=== PATIENT | female | born 1950 | race Caucasian/White ===

== ENCOUNTER 2017-10-30 11:50 | Inpatient (IN) ==
[2017-10-30] MEDS ORDERED: SODIUM CHLORIDE 0.9% 500 ML IV STA (12:08)
[2017-10-30 12:28] LABS: Basophils % 0.2 % (0.0-0.8); Eosinophils # 0.1 10*3/uL (0.0-0.87); Eosinophils % 1.1 % (0.00-10.9); Hematocrit 29.6 VOL% (35.7-47.0); Hemoglobin 9.4 GM/DL (12.0-16.0); Immature Granulocytes % 0.7 %; Immature Granulocytes Absolute 0.09 #; Lymphocytes # 1.1 10*3/uL (1.4-4.0); Lymphocytes % 8.5 % (21.3-54.2); Mean Corpuscular HGB Conc 31.8 GM/DL (32-36); Mean Corpuscular Hemoglobin 28 PG (27-34); Mean Corpuscular Volume 86.8 FL (87-102); Monocytes # 1.1 10*3/uL (0.11-0.8); Monocytes % 8.6 % (1.7-12.7); Neutrophils % 80.9 % (38.7-73.9); Platelet Count 102 T/CUMM (130-400); Red Blood Count 3.41 MC/CUMM (3.8-5.5); Red Cell Distribution Width 17.9 % (9.3-17.3); White Blood Count 12.3 T/CUMM (4-12)
[2017-10-30 12:43] LABS: PT Patient Result 10.7 SECS
[2017-10-30 12:52] LABS: Ammonia 42 UMOL/L (11-32)
[2017-10-30 12:57] LABS: Alanine Aminotransferase 31 U/L (13-56); Albumin 3.4 G/DL (3.4-5.0); Alkaline Phosphatase 94 U/L (45-117); Aspartate Amino Transferase 22 U/L (0-37); Blood Urea Nitrogen 13 MG/DL (7-18); Calcium 9.1 MG/DL (8.5-10.1); Glucose 139 MG/DL (74-106); Osmolality,Calculated 282.3 MOS/KG (273-304); Potassium 4.4 MMOL/L (3.5-5.1); Sodium 141 MMOL/L (136-145); Total Protein 6.5 G/DL (6.4-8.3)
[2017-10-30 15:14] LABS: Apearance,Urine CLEAR (Clear); Bilirubin,Urine Negative (Negative); Blood, Urine Negative (Negative); Glucose,Urine (UA) 150 mg/dL (Negative); Ketones,Urine Negative (Negative); Mucus,Urine Occasional /LPF (Occasional); Nitrite,Urine Negative (Negative); Protein,Urine Negative; RBC,Urine 1 /HPF (0-4); Squamous Epithelial Cell,Urine Occasional /HPF (0-10); Urine Color Yellow (Yellow); Urine Specific Gravity 1.018 (1.001-1.035); WBC,Urine <1 /HPF (0-6)
[2017-10-30 15:17] LABS: Barbiturates Screen,Urine Negative (Negative); Benzodiazepines Screen,Urine Negative (Negative); Cannabinoid Screen,Urine Negative (Negative); Opiate Screen,Urine Negative (Negative); Phencyclidine Screen,Urine Negative (Negative)
[2017-10-30] MEDS: INSULIN REGULAR 100 UNIT/ML SUBCUT SCH ×2 (16:40→22:12)
[2017-10-30] MEDS ORDERED: DEXTROSE 50% 25 GM/50 ML VIAL IV PRN (16:48)
[2017-10-30] MEDS ORDERED: GLUCAGON 1 MG VIAL IM PRN (16:48)
[2017-10-30] MEDS ORDERED: PNEUMOCOCCAL VACCINE (13 VALENT) 0.5 ML SYRINGE IM ONE (18:06)
[2017-10-30] MEDS: SODIUM CHLORIDE 0.9% 1,000 ML IV SCH (18:30)
[2017-10-30] MEDS: ENOXAPARIN 40 MG/0.4 ML SYRINGE SUBCUT SCH (18:31)
[2017-10-30] MEDS: PROPRANOLOL 20 MG TABLET PO SCH (22:06)
[2017-10-30] MEDS: LACTULOSE 20 GM/30 ML UDCUP PO SCH (22:06)
[2017-10-30] MEDS: ACETAMINOPHEN 325 MG TABLET PO PRN (22:23)
[2017-10-31 05:57] LABS: Basophils % 0.4 % (0.0-0.8); Eosinophils # 0.1 10*3/uL (0.0-0.87); Hematocrit 26.4 VOL% (35.7-47.0); Hemoglobin 8.1 GM/DL (12.0-16.0); Immature Granulocytes % 0.3 %; Immature Granulocytes Absolute 0.02 #; Lymphocytes # 1.5 10*3/uL (1.4-4.0); Lymphocytes % 20.8 % (21.3-54.2); Mean Corpuscular HGB Conc 30.7 GM/DL (32-36); Mean Corpuscular Hemoglobin 27 PG (27-34); Mean Corpuscular Volume 87.7 FL (87-102); Monocytes # 0.8 10*3/uL (0.11-0.8); Neutrophils # 4.5 10*3/uL (1.4-7.4); Neutrophils % 64.5 % (38.7-73.9); Platelet Count 99 T/CUMM (130-400); Red Blood Count 3.01 MC/CUMM (3.8-5.5)
[2017-10-31 06:27] LABS: Calcium 7.9 MG/DL (8.5-10.1); Osmolality,Calculated 287.8 MOS/KG (273-304); Potassium 3.9 MMOL/L (3.5-5.1)
[2017-10-31] MEDS: LACTULOSE 20 GM/30 ML UDCUP PO SCH ×3 (06:30→21:50)
[2017-10-31] MEDS: SODIUM CHLORIDE 0.9% 1,000 ML IV SCH ×2 (06:40→21:51)
[2017-10-31] MEDS: INSULIN REGULAR 100 UNIT/ML SUBCUT SCH ×4 (08:09→21:48)
[2017-10-31] MEDS: PROPRANOLOL 20 MG TABLET PO SCH ×2 (10:23→21:47)
[2017-10-31 15:18] LABS: Folate 16.6 NG/ML (5.4-24.0)
[2017-10-31] MEDS ORDERED: SKIN HEALING OINT (AQUAPHOR) 50 GM TUBE TOP PRN (15:35)
[2017-10-31] MEDS: ENOXAPARIN 40 MG/0.4 ML SYRINGE SUBCUT SCH (16:46)
[2017-10-31] MEDS: CEFTAROLINE 600 MG in SODIUM CHLORIDE 0.9% 50 ML IV SCH (17:31)
[2017-10-31] MEDS: FERROUS SULFATE 325 MG TABLET PO SCH (21:47)
[2017-10-31] MEDS: INSULIN GLARGINE 100 UNIT/ML SUBCUT SCH (21:48)
[2017-10-31] MEDS: DONEPEZIL 5 MG TABLET PO SCH (21:48)
[2017-11-01] MEDS: ACETAMINOPHEN 325 MG TABLET PO PRN ×2 (00:26→15:27)
[2017-11-01] MEDS ORDERED: HALOPERIDOL 5 MG/ML AMP IV ONE (00:30)
[2017-11-01] MEDS: CEFTAROLINE 600 MG in SODIUM CHLORIDE 0.9% 50 ML IV SCH ×2 (04:44→16:31)
[2017-11-01] MEDS: LACTULOSE 20 GM/30 ML UDCUP PO SCH ×3 (06:48→21:31)
[2017-11-01] MEDS: INSULIN REGULAR 100 UNIT/ML SUBCUT SCH ×4 (09:22→21:31)
[2017-11-01] MEDS: INSULIN GLARGINE 100 UNIT/ML SUBCUT SCH ×2 (09:22→21:32)
[2017-11-01] MEDS: FUROSEMIDE 20 MG TABLET PO SCH (09:24)
[2017-11-01] MEDS: LISINOPRIL 20 MG TABLET PO SCH (09:24)
[2017-11-01] MEDS: PROPRANOLOL 20 MG TABLET PO SCH ×2 (09:24→21:31)
[2017-11-01] MEDS: FERROUS SULFATE 325 MG TABLET PO SCH ×2 (09:24→21:31)
[2017-11-01] MEDS: SODIUM CHLORIDE 0.9% 1,000 ML IV SCH ×3 (09:32→22:30)
[2017-11-01] MEDS: ENOXAPARIN 40 MG/0.4 ML SYRINGE SUBCUT SCH (16:30)
[2017-11-01] MEDS: DONEPEZIL 5 MG TABLET PO SCH (21:31)
[2017-11-02] MEDS ORDERED: HALOPERIDOL 5 MG/ML AMP IV ONE (01:00)
[2017-11-02] MEDS ORDERED: LACTULOSE 20 GM/30 ML UDCUP PO PRN (03:00)
[2017-11-02] MEDS: CEFTAROLINE 600 MG in SODIUM CHLORIDE 0.9% 50 ML IV SCH ×2 (05:34→16:40)
[2017-11-02] MEDS: INSULIN REGULAR 100 UNIT/ML SUBCUT SCH ×3 (09:43→16:39)
[2017-11-02] MEDS: PROPRANOLOL 20 MG TABLET PO SCH ×2 (10:05→21:14)
[2017-11-02] MEDS: FERROUS SULFATE 325 MG TABLET PO SCH ×2 (10:05→21:14)
[2017-11-02] MEDS: INSULIN GLARGINE 100 UNIT/ML SUBCUT SCH ×2 (10:06→22:23)
[2017-11-02] MEDS: LISINOPRIL 20 MG TABLET PO SCH (10:06)
[2017-11-02] MEDS: FUROSEMIDE 20 MG TABLET PO SCH (10:06)
[2017-11-02] MEDS: LACTULOSE 20 GM/30 ML UDCUP PO SCH ×4 (12:25→18:32)
[2017-11-02 14:12] LABS: Basophils % 0.7 % (0.0-0.8); Eosinophils # 0.2 10*3/uL (0.0-0.87); Hematocrit 27.7 VOL% (35.7-47.0); Immature Granulocytes % 0.5 %; Immature Granulocytes Absolute 0.02 #; Lymphocytes # 1.1 10*3/uL (1.4-4.0); Lymphocytes % 25.1 % (21.3-54.2); Mean Corpuscular HGB Conc 28.9 GM/DL (32-36); Mean Corpuscular Hemoglobin 27 PG (27-34); Mean Corpuscular Volume 91.7 FL (87-102); Mean Platelet Volume 11.2 FL (9.6-12.0); Monocytes # 0.6 10*3/uL (0.11-0.8); Monocytes % 12.9 % (1.7-12.7); Neutrophils # 2.4 10*3/uL (1.4-7.4); Neutrophils % 56.8 % (38.7-73.9); Platelet Count 101 T/CUMM (130-400); Red Blood Count 3.02 MC/CUMM (3.8-5.5); Red Cell Distribution Width 17.9 % (9.3-17.3); White Blood Count 4.3 T/CUMM (4-12)
[2017-11-02 14:28] LABS: Calcium 7.6 MG/DL (8.5-10.1); Osmolality,Calculated 289.1 MOS/KG (273-304); Potassium 3.9 MMOL/L (3.5-5.1)
[2017-11-02] MEDS: SODIUM CHLORIDE 0.9% 1,000 ML IV SCH (15:30)
[2017-11-02] MEDS: SODIUM CHLORIDE 0.45% 1,000 ML IV SCH (15:59)
[2017-11-02 16:06] LABS: Albumin 2.6 G/DL (3.4-5.0); Bilirubin,Total 0.5 MG/DL (0.2-1.0); Calcium 7.6 MG/DL (8.5-10.1); Potassium 3.9 MMOL/L (3.5-5.1); Total Protein 5.5 G/DL (6.4-8.3)
[2017-11-02] MEDS: ENOXAPARIN 40 MG/0.4 ML SYRINGE SUBCUT SCH (16:39)
[2017-11-02 17:23] LABS: Eosinophils 4 % (0-10); Lymphocytes 39 % (20-55); Segmented Neutrophils 57 % (50-85); Total Cells Counted 100
[2017-11-02 17:24] LABS: Anisocytosis 1+; Hypochromasia 2+; Ovalocytes Few; Platelet Estimate Adequate; Polychromasia Few
[2017-11-02] MEDS: DONEPEZIL 5 MG TABLET PO SCH (21:14)
[2017-11-03] MEDS: LACTULOSE 20 GM/30 ML UDCUP PO SCH ×3 (00:30→12:14)
[2017-11-03] MEDS: INSULIN REGULAR 100 UNIT/ML SUBCUT SCH ×3 (02:09→12:12)
[2017-11-03] MEDS: SODIUM CHLORIDE 0.45% 1,000 ML IV SCH (05:18)
[2017-11-03] MEDS: CEFTAROLINE 600 MG in SODIUM CHLORIDE 0.9% 50 ML IV SCH ×2 (05:18→20:18)
[2017-11-03 07:02] LABS: Basophils % 0.6 % (0.0-0.8); Eosinophils # 0.3 10*3/uL (0.0-0.87); Eosinophils % 4.7 % (0.00-10.9); Hematocrit 27.2 VOL% (35.7-47.0); Hemoglobin 8.3 GM/DL (12.0-16.0); Immature Granulocytes % 0.4 %; Immature Granulocytes Absolute 0.02 #; Lymphocytes # 1.8 10*3/uL (1.4-4.0); Lymphocytes % 32.6 % (21.3-54.2); Mean Corpuscular HGB Conc 30.5 GM/DL (32-36); Mean Corpuscular Hemoglobin 27 PG (27-34); Mean Corpuscular Volume 89.8 FL (87-102); Mean Platelet Volume 11.8 FL (9.6-12.0); Monocytes # 0.7 10*3/uL (0.11-0.8); Monocytes % 12.7 % (1.7-12.7); Neutrophils # 2.6 10*3/uL (1.4-7.4); Platelet Count 110 T/CUMM (130-400); Red Blood Count 3.03 MC/CUMM (3.8-5.5); Red Cell Distribution Width 18.1 % (9.3-17.3); White Blood Count 5.4 T/CUMM (4-12)
[2017-11-03 07:36] LABS: Calcium 7.9 MG/DL (8.5-10.1); Potassium 3.3 MMOL/L (3.5-5.1)
[2017-11-03 07:41] LABS: Eosinophils 6 % (0-10); Lymphocytes 25 % (20-55); Nucleated Red Blood Cells 1 (0-5); Segmented Neutrophils 56 % (50-85); Total Cells Counted 100
[2017-11-03 07:42] LABS: Giant Platelets Few; Hypochromasia 1+; Ovalocytes Slight; Platelet Estimate Decreased
[2017-11-03] MEDS: INSULIN GLARGINE 100 UNIT/ML SUBCUT SCH (08:43)
[2017-11-03] MEDS: FERROUS SULFATE 325 MG TABLET PO SCH (08:44)
[2017-11-03] MEDS: FUROSEMIDE 20 MG TABLET PO SCH (08:45)
[2017-11-03] MEDS: PROPRANOLOL 20 MG TABLET PO SCH (08:45)
[2017-11-03] MEDS ORDERED: POTASSIUM CHLORIDE 20 MEQ TABLET PO ONE (11:53)
[2017-11-03] MEDS: LISINOPRIL 20 MG TABLET PO SCH (14:33)
[2017-11-03 20:11] VITALS: BP 150/70
[2017-11-03] MEDS: ENOXAPARIN 40 MG/0.4 ML SYRINGE SUBCUT SCH (20:17)
== END 2017-11-03 18:02 | disposition home health service (06) | DRG 442 ==
LOC: EDBD → EDSEX → EDUNIT# → N.ED 11:50 → N.EDINP 13:55 → SUATTDRO 13:55 → N.EDINP 16:35 → N.5E 16:48
PROVIDERS: ADMIT Internal Medicine Geriatric Medicine; ATTEND Internal Medicine

== ENCOUNTER 2020-07-28 16:31 | Observation (INO) ==
[2020-07-28 18:00] LABS: Basophils % 0.2 % (0.0-0.8); Hematocrit 37.8 VOL% (35.7-47.0); Hemoglobin 12.6 GM/DL (12.0-16.0); Immature Granulocytes Absolute 0.47 #; Lymphocytes # 0.7 10*3/uL (1.4-4.0); Lymphocytes % 4.6 % (21.3-54.2); Mean Corpuscular HGB Conc 33.3 GM/DL (32-36); Mean Corpuscular Volume 103.8 FL (87-102); Mean Platelet Volume 11.3 FL (9.6-12.0); Monocytes % 5.2 % (1.7-12.7); Platelet Count 73 T/CUMM (130-400); Red Blood Count 3.64 MC/CUMM (3.8-5.5); Red Cell Distribution Width 14.4 % (9.3-17.3); White Blood Count 15.6 T/CUMM (4-12)
[2020-07-28 18:36] LABS: Alanine Aminotransferase 55 U/L (13-56); Albumin 2.8 G/DL (3.4-5.0); Alkaline Phosphatase 79 U/L (45-117); Aspartate Amino Transferase 43 U/L (0-37); Blood Urea Nitrogen 36 MG/DL (7-18); Calcium 9.8 MG/DL (8.5-10.1); Estimated Glom Filtration Rate 54 ML/MIN; Glucose 231 MG/DL (74-106); Osmolality,Calculated 284.1 MOS/KG (273-304); Total Protein 6.5 G/DL (6.4-8.3)
[2020-07-28 20:55] LABS: Anisocytosis Slight; Band Neutrophils 7 % (0-10); Lymphocytes 3 % (20-55); Macrocytosis 1+; Platelet Estimate Decreased; Segmented Neutrophils 84 % (50-85); Total Cells Counted 100
[2020-07-28] MEDS ORDERED: SODIUM CHLORIDE 0.9% 500 ML IV STA (21:20)
[2020-07-28 21:24] LABS: Bilirubin,Urine Negative (Negative); Blood, Urine Negative (Negative); Glucose,Urine (UA) 50 mg/dL (Negative); Hyaline Casts,Urine 4 /LPF (0-3); Ketones,Urine Negative (Negative); Mucus,Urine Occasional /LPF (Occasional); Nitrite,Urine Negative (Negative); Protein,Urine Negative; RBC,Urine 3 /HPF (0-4); Squamous Epithelial Cell,Urine Few /HPF (0-10); Urine Appearance Slightly Hazy (Clear); Urine Color Amber (Yellow); Urine Specific Gravity 1.025 (1.001-1.035); Urine Urobilinogen < 2.0 EU/DL (0.2-1.0); WBC,Urine 4 /HPF (0-6)
[2020-07-28] MEDS ORDERED: ACETAMINOPHEN 325 MG TABLET PO PRN (22:52)
[2020-07-28] MEDS ORDERED: hydrALAZINE 20 MG/1 ML VIAL IV PRN (22:52)
[2020-07-28] MEDS ORDERED: DEXTROSE 50% 25 GM/50 ML VIAL IV PRN (22:52)
[2020-07-28] MEDS ORDERED: GLUCAGON 1 MG VIAL IM PRN (22:52)
[2020-07-28] MEDS ORDERED: NICOTINE 21 MG/24 HR PATCH TRANSDERM PRN (22:52)
[2020-07-28] MEDS ORDERED: MORPHINE 4 MG/1 ML VIAL IV PRN (22:52)
[2020-07-28] MEDS ORDERED: ONDANSETRON 4 MG/2 ML VIAL IV PRN (22:52)
[2020-07-28 23:16] LABS: Risk Ratio 1.75; VLDL CHOLESTEROL 14.6 MG/DL
[2020-07-28] MEDS: SODIUM CHLORIDE 0.9% 1,000 ML IV SCH (23:58)
[2020-07-29 00:40] LABS: Basophils % 0.2 % (0.0-0.8); Eosinophils % 0.2 % (0.00-10.9); Hematocrit 35.4 VOL% (35.7-47.0); Hemoglobin 11.8 GM/DL (12.0-16.0); Immature Granulocytes % 0.9 %; Immature Granulocytes Absolute 0.11 #; Lymphocytes # 0.9 10*3/uL (1.4-4.0); Lymphocytes % 7.3 % (21.3-54.2); Mean Corpuscular HGB Conc 33.3 GM/DL (32-36); Mean Corpuscular Volume 104.7 FL (87-102); Monocytes % 7.2 % (1.7-12.7); Neutrophils % 84.2 % (38.7-73.9); Platelet Count 61 T/CUMM (130-400); Red Blood Count 3.38 MC/CUMM (3.8-5.5); Red Cell Distribution Width 14.4 % (9.3-17.3); White Blood Count 12.7 T/CUMM (4-12)
[2020-07-29 00:59] LABS: Albumin 2.7 G/DL (3.4-5.0); Bilirubin,Total 2.3 MG/DL (0.2-1.0); Calcium 9.3 MG/DL (8.5-10.1); Osmolality,Calculated 289.7 MOS/KG (273-304)
[2020-07-29] MEDS: INSULIN REGULAR 100 UNIT/ML SUBCUT SCH ×4 (01:57→17:34)
[2020-07-29] MEDS: cefTRIAXone 2,000 MG in SYRINGE 1 EACH IV SCH (01:58)
[2020-07-29 02:33] LABS: Band Neutrophils 2 % (0-10); Eosinophils 1 % (0-10); Lymphocytes 8 % (20-55); Segmented Neutrophils 83 % (50-85); Total Cells Counted 100
[2020-07-29 02:34] LABS: Anisocytosis 1+; Platelet Estimate Decreased
[2020-07-29] MEDS: SODIUM CHLORIDE 0.9% 1,000 ML IV SCH ×2 (07:25→08:17)
[2020-07-29] MEDS ORDERED: DEXTROSE 50% 25 GM/50 ML VIAL IV PRN (10:06)
[2020-07-29] MEDS ORDERED: GLUCAGON 1 MG VIAL IM PRN (10:06)
[2020-07-29] MEDS ORDERED: oxyCODONE IR 5 MG TABLET PO PRN (12:07)
[2020-07-29] MEDS: LACTULOSE 20 GM/30 ML UDCUP PO SCH (14:33)
[2020-07-29] MEDS: FERROUS SULFATE 325 MG TABLET PO SCH (14:34)
[2020-07-29] MEDS ORDERED: INSULIN GLARGINE 100 UNIT/ML SUBCUT SCH (21:00)
[2020-07-29] MEDS ORDERED: DONEPEZIL 10 MG TABLET PO SCH (21:00)
[2020-07-29] MEDS ORDERED: lisinopriL 20 MG TABLET PO SCH (21:00)
[2020-07-29] MEDS ORDERED: CALCIUM (CARBONATE) 600 MG TABLET PO SCH (21:00)
[2020-07-29] MEDS: PROPRANOLOL 20 MG TABLET PO SCH (21:54)
[2020-07-30] MEDS: INSULIN REGULAR 100 UNIT/ML SUBCUT SCH ×3 (00:05→12:42)
[2020-07-30 05:36] LABS: Basophils % 0.4 % (0.0-0.8); Eosinophils # 0.2 10*3/uL (0.0-0.87); Eosinophils % 2.2 % (0.00-10.9); Hematocrit 35.7 VOL% (35.7-47.0); Hemoglobin 11.9 GM/DL (12.0-16.0); Immature Granulocytes % 0.3 %; Immature Granulocytes Absolute 0.03 #; Lymphocytes # 1.2 10*3/uL (1.4-4.0); Mean Corpuscular HGB Conc 33.3 GM/DL (32-36); Mean Platelet Volume 11.6 FL (9.6-12.0); Monocytes % 10.5 % (1.7-12.7); Neutrophils % 73.6 % (38.7-73.9); Platelet Count 64 T/CUMM (130-400); Red Cell Distribution Width 14.1 % (9.3-17.3); White Blood Count 9.1 T/CUMM (4-12)
[2020-07-30 05:58] LABS: Hypochromasia 1+; Platelet Estimate Decreased
[2020-07-30 05:59] LABS: Macrocytosis Slight
[2020-07-30 06:04] LABS: Albumin 2.5 G/DL (3.4-5.0); Bilirubin,Total 1.2 MG/DL (0.2-1.0); Calcium 8.8 MG/DL (8.5-10.1); Osmolality,Calculated 280.8 MOS/KG (273-304); Total Protein 5.7 G/DL (6.4-8.3)
[2020-07-30] MEDS: FERROUS SULFATE 325 MG TABLET PO SCH (09:09)
[2020-07-30] MEDS: PROPRANOLOL 20 MG TABLET PO SCH (09:10)
[2020-07-30] MEDS: LACTULOSE 20 GM/30 ML UDCUP PO SCH (09:22)
[2020-07-30] MEDS: cefTRIAXone 2,000 MG in SYRINGE 1 EACH IV SCH (10:20)
[2020-07-30 11:35] VITALS: BP 146/69
== END 2020-07-30 14:59 | disposition home health service (06) ==
LOC: N.ED 16:31 → INTOOBSV 21:21 → N.EDINP 21:21 → N.5E 22:58
PROVIDERS: ADMIT Internal Medicine; ATTEND Internal Medicine

== ENCOUNTER 2021-01-13 05:25 | Inpatient (IN) ==
[2021-01-07 12:50] LABS: Basophils % 0.7 % (0.0-0.8); Eosinophils # 0.2 10*3/uL (0.0-0.87); Eosinophils % 3.8 % (0.00-10.9); Hematocrit 35.6 VOL% (35.7-47.0); Immature Granulocytes % 0.2 %; Immature Granulocytes Absolute 0.01 #; Lymphocytes # 1.4 10*3/uL (1.4-4.0); Lymphocytes % 25.9 % (21.3-54.2); Mean Corpuscular HGB Conc 33.7 GM/DL (32-36); Mean Corpuscular Volume 106.6 FL (87-102); Monocytes % 10.8 % (1.7-12.7); Neutrophils % 58.6 % (38.7-73.9); Platelet Count 82 T/CUMM (130-400); Red Blood Count 3.34 MC/CUMM (3.8-5.5); Red Cell Distribution Width 15.3 % (9.3-17.3); White Blood Count 5.6 T/CUMM (4-12)
[2021-01-07 12:57] LABS: Bilirubin,Urine Negative (Negative); Blood, Urine Negative (Negative); Glucose,Urine (UA) Negative (Negative); Ketones,Urine Negative (Negative); Mucus,Urine Occasional /LPF (Occasional); Nitrite,Urine Negative (Negative); Protein,Urine Negative; RBC,Urine 4 /HPF (0-4); Squamous Epithelial Cell,Urine Occasional /HPF (0-10); Urine Appearance Slightly Hazy (Clear); Urine Color Yellow (Yellow); Urine Specific Gravity 1.014 (1.001-1.035); Urine Urobilinogen < 2.0 EU/DL (0.2-1.0); WBC,Urine 3 /HPF (0-6)
[2021-01-07 13:02] LABS: INR 1.1; PT Patient Result 11.9 SECS (9.8-11.9); Partial Thromboplastin Time 25.4 SECS (23.9-33.8)
[2021-01-07 13:06] LABS: Albumin 2.9 G/DL (3.4-5.0); Bilirubin,Total 1.3 MG/DL (0.2-1.0); Calcium 9.4 MG/DL (8.5-10.1); Osmolality,Calculated 286.3 MOS/KG (273-304); Potassium 4.7 MMOL/L (3.5-5.1); Total Protein 5.8 G/DL (6.4-8.3)
[2021-01-07 13:40] LABS: Platelet Estimate Decreased
[2021-01-07 13:41] LABS: Anisocytosis 1+; Macrocytosis Slight
[2021-01-13] MEDS ORDERED: LACTATED RINGERS 1,000 ML IV SCH (06:00)
[2021-01-13] MEDS ORDERED: VANCOMYCIN INJ 1,000 MG in SODIUM CHLORIDE 0.9% 250 ML IV ONE (06:30)
[2021-01-13] MEDS ORDERED: BACITRACIN OINT 0.9 GM PACK TOP ONE (06:39)
[2021-01-13] MEDS ORDERED: fentaNYL 100 MCG/2 ML VIAL ONE ×2 (06:47→09:23)
[2021-01-13] MEDS ORDERED: MIDAZOLAM 2 MG/2 ML VIAL ONE (06:48)
[2021-01-13] MEDS ORDERED: KETAMINE 500 MG/10 ML VIAL ONE (06:48)
[2021-01-13] MEDS ORDERED: FAMOTIDINE 20 MG TABLET PO STA (07:05)
[2021-01-13] MEDS ORDERED: DIAZEPAM 5 MG TABLET PO STA (07:05)
[2021-01-13] MEDS ORDERED: GABAPENTIN 400 MG CAPSULE PO ONE (07:05)
[2021-01-13] MEDS ORDERED: ACETAMINOPHEN 500 MG TABLET PO STA (07:06)
[2021-01-13] MEDS ORDERED: DIAZEPAM 5 MG TABLET ONE (07:08)
[2021-01-13] MEDS ORDERED: ACETAMINOPHEN 500 MG TABLET ONE (07:09)
[2021-01-13] MEDS ORDERED: FAMOTIDINE 20 MG TABLET ONE (07:09)
[2021-01-13] MEDS ORDERED: GABAPENTIN 400 MG CAPSULE ONE (07:09)
[2021-01-13] MEDS ORDERED: ROPIVACAINE 0.5% 30 ML VIAL ONE (07:27)
[2021-01-13] MEDS ORDERED: DEXAMETHASONE 4 MG/1 ML VIAL ONE (07:27)
[2021-01-13] MEDS ORDERED: ceFAZolin 2,000 MG in PREMIX 1 EACH IV ONE (07:30)
[2021-01-13] MEDS ORDERED: ePHEDrine 50 MG/ML VIAL ONE (09:02)
[2021-01-13] MEDS ORDERED: GLYCOPYRROLATE 0.4 MG/2 ML VIAL ONE (09:52)
[2021-01-13] MEDS ORDERED: propofoL 200 MG/20 ML VIAL IV ONE (09:52)
[2021-01-13] MEDS ORDERED: ROCURONIUM 50 MG/5 ML VIAL IV ONE (09:52)
[2021-01-13] MEDS ORDERED: LIDOCAINE 2% 5 ML VIAL ONE (09:52)
[2021-01-13] MEDS ORDERED: TRANEXAMIC ACID 1,000 MG/10 ML VIAL ONE (09:52)
[2021-01-13] MEDS ORDERED: ONDANSETRON 4 MG/2 ML VIAL ONE (09:52)
[2021-01-13] MEDS ORDERED: SEVOFLURANE 1 UNIT/15 MINUTE INH ONE (09:52)
[2021-01-13] MEDS ORDERED: SODIUM CHLORIDE 0.9% 100 ML IV ONE (09:52)
[2021-01-13] MEDS ORDERED: SODIUM CHLORIDE 0.9% 250 ML IV ONE (09:52)
[2021-01-13] MEDS ORDERED: LACTATED RINGERS 1,000 ML IV ONE (09:52)
[2021-01-13] MEDS ORDERED: ETOMIDATE 40 MG/20 ML VIAL IV ONE (09:52)
[2021-01-13] MEDS ORDERED: SUGAMMADEX 200 MG/2 ML VIAL IV ONE (09:55)
[2021-01-13] MEDS ORDERED: POTASSIUM CHLORIDE 20 MEQ TABLET PO PRN (10:20)
[2021-01-13] MEDS ORDERED: DEXTROSE 50% 25 GM/50 ML VIAL IV PRN (10:23)
[2021-01-13] MEDS ORDERED: GLUCAGON 1 MG VIAL IM PRN (10:23)
[2021-01-13] MEDS ORDERED: MAGNESIUM HYDROXIDE SUSP 30 ML UDCUP PO PRN (10:24)
[2021-01-13] MEDS ORDERED: ONDANSETRON 4 MG/2 ML VIAL IV PRN (10:24)
[2021-01-13] MEDS ORDERED: oxyCODONE/ACETAMINOPHEN 5-325 MG TABLET PO PRN (10:24)
[2021-01-13] MEDS ORDERED: diphenhydrAMINE CAP 25 MG CAPSULE PO PRN (10:24)
[2021-01-13] MEDS ORDERED: MORPHINE 4 MG/1 ML VIAL IV PRN ×2 (10:24)
[2021-01-13] MEDS ORDERED: hydrALAZINE 20 MG/1 ML VIAL IV PRN (14:04)
[2021-01-13] MEDS: KETOROLAC 15 MG/1 ML VIAL IV SCH ×3 (15:06→23:28)
[2021-01-13] MEDS: LACTATED RINGERS 1,000 ML IV SCH ×2 (15:06→23:23)
[2021-01-13] MEDS: INSULIN LISPRO 100 UNIT/ML SUBCUT SCH ×3 (15:06→23:27)
[2021-01-13] MEDS: ceFAZolin 2,000 MG in PREMIX 1 EACH IV SCH ×2 (15:50→23:28)
[2021-01-13] MEDS: INSULIN GLARGINE 100 UNIT/ML SUBCUT SCH (16:19)
[2021-01-13] MEDS: DONEPEZIL 10 MG TABLET PO SCH (21:35)
[2021-01-13] MEDS: DOCUSATE SODIUM 100 MG CAPSULE PO SCH (21:35)
[2021-01-13] MEDS: PROPRANOLOL 10 MG TABLET PO SCH (21:37)
[2021-01-14] MEDS: KETOROLAC 15 MG/1 ML VIAL IV SCH (05:12)
[2021-01-14] MEDS: FONDAPARINUX 2.5 MG/0.5 ML SYRINGE SUBCUT SCH (05:13)
[2021-01-14 05:38] LABS: Basophils % 0.6 % (0.0-0.8); Eosinophils % 0.6 % (0.00-10.9); Hematocrit 29.5 VOL% (35.7-47.0); Hemoglobin 10.3 GM/DL (12.0-16.0); Immature Granulocytes % 0.3 %; Immature Granulocytes Absolute 0.02 #; Lymphocytes # 1.2 10*3/uL (1.4-4.0); Lymphocytes % 16.7 % (21.3-54.2); Mean Corpuscular HGB Conc 34.9 GM/DL (32-36); Mean Corpuscular Volume 103.9 FL (87-102); Mean Platelet Volume 11.3 FL (9.6-12.0); Monocytes % 11.5 % (1.7-12.7); Neutrophils % 70.3 % (38.7-73.9); Platelet Count 57 T/CUMM (130-400); Red Blood Count 2.84 MC/CUMM (3.8-5.5); White Blood Count 6.9 T/CUMM (4-12)
[2021-01-14 06:03] LABS: Calcium 8.5 MG/DL (8.5-10.1); Osmolality,Calculated 281.8 MOS/KG (273-304); Potassium 4.6 MMOL/L (3.5-5.1)
[2021-01-14 06:04] LABS: Hypochromasia 1+; Microcytosis 1+; Platelet Estimate Decreased
[2021-01-14] MEDS: DOCUSATE SODIUM 100 MG CAPSULE PO SCH ×2 (08:31→21:23)
[2021-01-14] MEDS: FUROSEMIDE 20 MG TABLET PO SCH (08:32)
[2021-01-14] MEDS: FERROUS SULFATE 325 MG TABLET PO SCH (08:32)
[2021-01-14] MEDS: PROPRANOLOL 10 MG TABLET PO SCH ×2 (08:32→21:22)
[2021-01-14] MEDS: LACTULOSE 20 GM/30 ML UDCUP PO SCH (08:32)
[2021-01-14] MEDS: MULTIVITAMIN (CENTRUM) TABLET PO SCH (08:32)
[2021-01-14] MEDS: OXYBUTYNIN XL 15 MG TABLET PO SCH (08:32)
[2021-01-14] MEDS: INSULIN LISPRO 100 UNIT/ML SUBCUT SCH ×4 (11:25→21:55)
[2021-01-14] MEDS: oxyCODONE/ACETAMINOPHEN 5-325 MG TABLET PO PRN ×2 (12:08→18:03)
[2021-01-14] MEDS: INSULIN GLARGINE 100 UNIT/ML SUBCUT SCH (17:21)
[2021-01-14] MEDS: LACTATED RINGERS 1,000 ML IV SCH (20:20)
[2021-01-14] MEDS: DONEPEZIL 10 MG TABLET PO SCH (21:23)
[2021-01-14] MEDS: lisinopriL 20 MG TABLET PO SCH (21:23)
[2021-01-15] MEDS: FONDAPARINUX 2.5 MG/0.5 ML SYRINGE SUBCUT SCH (05:07)
[2021-01-15 06:08] LABS: Basophils % 0.6 % (0.0-0.8); Eosinophils # 0.1 10*3/uL (0.0-0.87); Eosinophils % 2.1 % (0.00-10.9); Hematocrit 28.2 VOL% (35.7-47.0); Hemoglobin 9.4 GM/DL (12.0-16.0); Immature Granulocytes % 0.6 %; Immature Granulocytes Absolute 0.03 #; Lymphocytes # 1.4 10*3/uL (1.4-4.0); Lymphocytes % 26.8 % (21.3-54.2); Mean Corpuscular HGB Conc 33.3 GM/DL (32-36); Mean Corpuscular Volume 110.2 FL (87-102); Mean Platelet Volume 10.8 FL (9.6-12.0); Monocytes % 14.2 % (1.7-12.7); Neutrophils % 55.7 % (38.7-73.9); Platelet Count 49 T/CUMM (130-400); Red Blood Count 2.56 MC/CUMM (3.8-5.5); Red Cell Distribution Width 15.8 % (9.3-17.3); White Blood Count 5.2 T/CUMM (4-12)
[2021-01-15 06:38] LABS: Anisocytosis 1+; Hypochromasia 1+; Microcytosis 1+; Ovalocytes Slight; Platelet Estimate Decreased
[2021-01-15] MEDS: OXYBUTYNIN XL 15 MG TABLET PO SCH (08:52)
[2021-01-15] MEDS: DOCUSATE SODIUM 100 MG CAPSULE PO SCH ×2 (08:52→21:09)
[2021-01-15] MEDS: FUROSEMIDE 20 MG TABLET PO SCH (08:53)
[2021-01-15] MEDS: FERROUS SULFATE 325 MG TABLET PO SCH (08:53)
[2021-01-15] MEDS: PROPRANOLOL 10 MG TABLET PO SCH ×2 (08:53→21:09)
[2021-01-15] MEDS: LACTULOSE 20 GM/30 ML UDCUP PO SCH (08:54)
[2021-01-15] MEDS: oxyCODONE/ACETAMINOPHEN 5-325 MG TABLET PO PRN ×3 (08:54→21:09)
[2021-01-15] MEDS: INSULIN LISPRO 100 UNIT/ML SUBCUT SCH ×4 (08:55→21:10)
[2021-01-15] MEDS: MULTIVITAMIN (CENTRUM) TABLET PO SCH (08:55)
[2021-01-15] MEDS: LACTULOSE 20 GM/30 ML UDCUP PO PRN ×2 (15:10→21:10)
[2021-01-15] MEDS: INSULIN GLARGINE 100 UNIT/ML SUBCUT SCH (18:12)
[2021-01-15] MEDS: DONEPEZIL 10 MG TABLET PO SCH (21:09)
[2021-01-15] MEDS: lisinopriL 20 MG TABLET PO SCH (21:09)
[2021-01-16] MEDS: FONDAPARINUX 2.5 MG/0.5 ML SYRINGE SUBCUT SCH (05:14)
[2021-01-16 06:05] LABS: Basophils % 0.6 % (0.0-0.8); Eosinophils # 0.2 10*3/uL (0.0-0.87); Eosinophils % 2.5 % (0.00-10.9); Hematocrit 27.7 VOL% (35.7-47.0); Hemoglobin 9.3 GM/DL (12.0-16.0); Immature Granulocytes % 0.3 %; Immature Granulocytes Absolute 0.02 #; Lymphocytes # 1.6 10*3/uL (1.4-4.0); Lymphocytes % 25.7 % (21.3-54.2); Mean Corpuscular HGB Conc 33.6 GM/DL (32-36); Mean Corpuscular Volume 108.6 FL (87-102); Mean Platelet Volume 11.2 FL (9.6-12.0); Monocytes % 15.8 % (1.7-12.7); Neutrophils % 55.1 % (38.7-73.9); Platelet Count 70 T/CUMM (130-400); Red Blood Count 2.55 MC/CUMM (3.8-5.5); Red Cell Distribution Width 15.7 % (9.3-17.3); White Blood Count 6.4 T/CUMM (4-12)
[2021-01-16 06:44] LABS: Band Neutrophils 1 % (0-10); Eosinophils 2 % (0-10); Hypochromasia 1+; Lymphocytes 21 % (20-55); Segmented Neutrophils 64 % (50-85); Total Cells Counted 100
[2021-01-16 06:45] LABS: Anisocytosis 1+; Microcytosis 1+; Platelet Estimate Decreased
[2021-01-16] MEDS: OXYBUTYNIN XL 15 MG TABLET PO SCH (09:09)
[2021-01-16] MEDS: INSULIN LISPRO 100 UNIT/ML SUBCUT SCH ×2 (09:09→11:30)
[2021-01-16] MEDS: FUROSEMIDE 20 MG TABLET PO SCH (09:09)
[2021-01-16] MEDS: MULTIVITAMIN (CENTRUM) TABLET PO SCH (09:09)
[2021-01-16] MEDS: LACTULOSE 20 GM/30 ML UDCUP PO SCH (09:09)
[2021-01-16] MEDS: FERROUS SULFATE 325 MG TABLET PO SCH (09:09)
[2021-01-16] MEDS: PROPRANOLOL 10 MG TABLET PO SCH (09:09)
[2021-01-16] MEDS: DOCUSATE SODIUM 100 MG CAPSULE PO SCH (09:09)
[2021-01-16 11:24] VITALS: BP 145/46
== END 2021-01-16 16:10 | disposition home health service (06) | DRG 470 ==
LOC: N.OR 05:25 → N.SDSINP 05:28 → N.3E 13:20
PROVIDERS: ADMIT Orthopaedic Surgery; ATTEND Orthopaedic Surgery

== ENCOUNTER 2021-03-11 15:55 | Inpatient (IN) ==
[2021-03-11] MEDS ORDERED: SODIUM CHLORIDE 0.9% 1,000 ML IV STA (16:50)
[2021-03-11 18:38] LABS: Basophils % 0.1 % (0.0-0.8); Eosinophils % 0.6 % (0.00-10.9); Hematocrit 36.1 VOL% (35.7-47.0); Hemoglobin 11.8 GM/DL (12.0-16.0); Immature Granulocytes % 0.7 %; Immature Granulocytes Absolute 0.05 #; Lymphocytes # 0.9 10*3/uL (1.4-4.0); Lymphocytes % 12.8 % (21.3-54.2); Mean Corpuscular HGB Conc 32.7 GM/DL (32-36); Mean Corpuscular Volume 106.2 FL (87-102); Mean Platelet Volume 11.7 FL (9.6-12.0); Neutrophils % 71.8 % (38.7-73.9); Platelet Count 74 T/CUMM (130-400); Red Cell Distribution Width 13.7 % (9.3-17.3)
[2021-03-11 19:04] LABS: Alanine Aminotransferase 26 U/L (13-56); Albumin 2.7 G/DL (3.4-5.0); Alkaline Phosphatase 83 U/L (45-117); Aspartate Amino Transferase 26 U/L (0-37); Blood Urea Nitrogen 19 MG/DL (7-18); Calcium 8.9 MG/DL (8.5-10.1); Carbon Dioxide 28 MMOL/L (21-32); Estimated Glom Filtration Rate 72 ML/MIN; Glucose 247 MG/DL (74-106); Osmolality,Calculated 275.4 MOS/KG (273-304); Sodium 133 MMOL/L (136-145); Total Protein 6.3 G/DL (6.4-8.2)
[2021-03-11] MEDS ORDERED: PIPERACILLIN/TAZOBACTAM 3,375 MG in SODIUM CHLORIDE 0.9% 100 ML IV STA (19:29)
[2021-03-11 19:48] LABS: Bacteria,Urine Occasional /HPF (Few); Bilirubin,Urine Negative (Negative); Blood, Urine Small mg/dL (Negative); Glucose,Urine (UA) >=500 mg/dL (Negative); Hyaline Casts,Urine 1 /LPF (0-3); Ketones,Urine Negative (Negative); Mucus,Urine Few /LPF (Occasional); Nitrite,Urine Negative (Negative); Protein,Urine Negative; RBC,Urine 2 /HPF (0-4); Squamous Epithelial Cell,Urine Few /HPF (0-10); Urine Appearance Slightly Hazy (Clear); Urine Color Amber (Yellow); Urine Specific Gravity 1.018 (1.001-1.035); WBC,Urine 1 /HPF (0-6)
[2021-03-11 20:49] LABS: Platelet Estimate Decreased
[2021-03-11 20:50] LABS: Anisocytosis Slight; Macrocytosis Slight; Polychromasia Few
[2021-03-11] MEDS ORDERED: MORPHINE 4 MG/1 ML VIAL IV PRN (21:03)
[2021-03-11] MEDS ORDERED: NICOTINE 21 MG/24 HR PATCH TRANSDERM PRN (21:03)
[2021-03-11] MEDS ORDERED: guaiFENesin/DM ER 600-30 MG TABLET PO PRN (21:03)
[2021-03-11] MEDS ORDERED: hydrALAZINE 20 MG/1 ML VIAL IV PRN (21:03)
[2021-03-11] MEDS ORDERED: DEXTROSE 50% 25 GM/50 ML VIAL IV PRN (21:03)
[2021-03-11] MEDS ORDERED: GLUCAGON 1 MG VIAL IM PRN (21:03)
[2021-03-11] MEDS ORDERED: VANCOMYCIN INJ 1,000 MG in SODIUM CHLORIDE 0.9% 250 ML IV SCH (21:30)
[2021-03-12] MEDS: ACETAMINOPHEN 325 MG TABLET PO PRN ×4 (01:09→21:33)
[2021-03-12] MEDS: VANCOMYCIN INJ 1,500 MG in SODIUM CHLORIDE 0.9% 500 ML IV SCH ×2 (02:01→15:23)
[2021-03-12 06:45] LABS: Basophils % 0.3 % (0.0-0.8); Eosinophils # 0.1 10*3/uL (0.0-0.87); Hematocrit 31.8 VOL% (35.7-47.0); Hemoglobin 10.4 GM/DL (12.0-16.0); Immature Granulocytes % 0.6 %; Immature Granulocytes Absolute 0.04 #; Lymphocytes % 14.4 % (21.3-54.2); Mean Corpuscular HGB Conc 32.7 GM/DL (32-36); Mean Platelet Volume 10.8 FL (9.6-12.0); Monocytes % 15.9 % (1.7-12.7); Neutrophils % 67.8 % (38.7-73.9); Red Cell Distribution Width 13.6 % (9.3-17.3); White Blood Count 6.8 T/CUMM (4-12)
[2021-03-12 06:49] LABS: Platelet Count 70 T/CUMM (130-400)
[2021-03-12 07:08] LABS: Albumin 2.2 G/DL (3.4-5.0); Bilirubin,Total 1.9 MG/DL (0.2-1.0); Osmolality,Calculated 277.8 MOS/KG (273-304); Potassium 3.7 MMOL/L (3.5-5.1); Total Protein 5.3 G/DL (6.4-8.2)
[2021-03-12 07:09] LABS: Eosinophils 1 % (0-10); Lymphocytes 13 % (20-55); Platelet Estimate Decreased; Segmented Neutrophils 74 % (50-85); Total Cells Counted 100
[2021-03-12 07:10] LABS: Hypochromasia 1+; Microcytosis 1+
[2021-03-12] MEDS: INSULIN REGULAR 100 UNIT/ML SUBCUT SCH ×4 (08:34→21:34)
[2021-03-12] MEDS: FERROUS SULFATE 325 MG TABLET PO SCH (09:13)
[2021-03-12] MEDS: POTASSIUM CHLORIDE 20 MEQ TABLET PO SCH (09:13)
[2021-03-12] MEDS: FUROSEMIDE 20 MG TABLET PO SCH (09:13)
[2021-03-12] MEDS: PROPRANOLOL 10 MG TABLET PO SCH ×2 (09:13→21:33)
[2021-03-12] MEDS: LACTULOSE 20 GM/30 ML UDCUP PO SCH ×2 (09:14→21:34)
[2021-03-12] MEDS: PIPERACILLIN/TAZOBACTAM 3,375 MG in SODIUM CHLORIDE 0.9% 100 ML IV SCH ×2 (09:18→18:01)
[2021-03-12] MEDS: DONEPEZIL 10 MG TABLET PO SCH (21:33)
[2021-03-12] MEDS: INSULIN GLARGINE 100 UNIT/ML SUBCUT SCH (21:34)
[2021-03-13] MEDS: VANCOMYCIN INJ 1,500 MG in SODIUM CHLORIDE 0.9% 500 ML IV SCH (01:34)
[2021-03-13] MEDS: PIPERACILLIN/TAZOBACTAM 3,375 MG in SODIUM CHLORIDE 0.9% 100 ML IV SCH (04:06)
[2021-03-13 05:54] LABS: Basophils % 0.3 % (0.0-0.8); Eosinophils # 0.2 10*3/uL (0.0-0.87); Eosinophils % 2.5 % (0.00-10.9); Hematocrit 32.9 VOL% (35.7-47.0); Hemoglobin 10.8 GM/DL (12.0-16.0); Immature Granulocytes % 0.5 %; Immature Granulocytes Absolute 0.05 #; Lymphocytes % 9.9 % (21.3-54.2); Mean Corpuscular HGB Conc 32.8 GM/DL (32-36); Mean Corpuscular Volume 106.5 FL (87-102); Mean Platelet Volume 11.2 FL (9.6-12.0); Monocytes % 10.5 % (1.7-12.7); Neutrophils % 76.3 % (38.7-73.9); Red Blood Count 3.09 MC/CUMM (3.8-5.5); Red Cell Distribution Width 13.5 % (9.3-17.3)
[2021-03-13 06:00] LABS: Platelet Count 89 T/CUMM (130-400); White Blood Count 9.7 T/CUMM (4-12)
[2021-03-13] MEDS: ACETAMINOPHEN 325 MG TABLET PO PRN (06:08)
[2021-03-13 06:14] LABS: Hypochromasia 1+; Microcytosis 1+; Platelet Estimate Decreased
[2021-03-13 06:15] LABS: Ovalocytes Slight
[2021-03-13 06:17] LABS: Albumin 2.2 G/DL (3.4-5.0); Bilirubin,Total 1.6 MG/DL (0.2-1.0); Osmolality,Calculated 272.1 MOS/KG (273-304); Potassium 4.1 MMOL/L (3.5-5.1); Total Protein 5.8 G/DL (6.4-8.2)
[2021-03-13] MEDS: INSULIN REGULAR 100 UNIT/ML SUBCUT SCH ×5 (08:16→21:00)
[2021-03-13] MEDS: POTASSIUM CHLORIDE 20 MEQ TABLET PO SCH (08:55)
[2021-03-13] MEDS: FUROSEMIDE 20 MG TABLET PO SCH (08:55)
[2021-03-13] MEDS: PROPRANOLOL 10 MG TABLET PO SCH ×2 (08:55→20:15)
[2021-03-13] MEDS: FERROUS SULFATE 325 MG TABLET PO SCH (08:55)
[2021-03-13] MEDS: LACTULOSE 20 GM/30 ML UDCUP PO SCH ×2 (08:56→20:15)
[2021-03-13] MEDS: ceFAZolin 2,000 MG in PREMIX 1 EACH IV SCH ×2 (14:41→20:16)
[2021-03-13] MEDS: DONEPEZIL 10 MG TABLET PO SCH (20:15)
[2021-03-13] MEDS: INSULIN GLARGINE 100 UNIT/ML SUBCUT SCH (20:16)
[2021-03-14] MEDS: ceFAZolin 2,000 MG in PREMIX 1 EACH IV SCH ×3 (05:36→21:49)
[2021-03-14 06:56] LABS: Basophils % 0.3 % (0.0-0.8); Eosinophils # 0.2 10*3/uL (0.0-0.87); Eosinophils % 2.2 % (0.00-10.9); Hematocrit 32.2 VOL% (35.7-47.0); Hemoglobin 10.7 GM/DL (12.0-16.0); Immature Granulocytes % 0.8 %; Immature Granulocytes Absolute 0.07 #; Lymphocytes # 1.1 10*3/uL (1.4-4.0); Lymphocytes % 11.6 % (21.3-54.2); Mean Corpuscular HGB Conc 33.2 GM/DL (32-36); Mean Corpuscular Volume 104.5 FL (87-102); Mean Platelet Volume 11.1 FL (9.6-12.0); Neutrophils % 74.1 % (38.7-73.9); Red Blood Count 3.08 MC/CUMM (3.8-5.5); Red Cell Distribution Width 13.3 % (9.3-17.3); White Blood Count 9.1 T/CUMM (4-12)
[2021-03-14 06:57] LABS: Platelet Count 105 T/CUMM (130-400)
[2021-03-14 07:16] LABS: Hypochromasia 1+; Microcytosis 1+; Platelet Estimate Decreased
[2021-03-14 07:26] LABS: Calcium 7.6 MG/DL (8.5-10.1); Osmolality,Calculated 265.7 MOS/KG (273-304); Potassium 4.1 MMOL/L (3.5-5.1)
[2021-03-14] MEDS: ONDANSETRON 4 MG/2 ML VIAL IV PRN (08:16)
[2021-03-14] MEDS: LACTULOSE 20 GM/30 ML UDCUP PO SCH ×2 (08:16→21:50)
[2021-03-14] MEDS: PROPRANOLOL 10 MG TABLET PO SCH ×2 (08:17→21:49)
[2021-03-14] MEDS: POTASSIUM CHLORIDE 20 MEQ TABLET PO SCH (08:17)
[2021-03-14] MEDS: FUROSEMIDE 20 MG TABLET PO SCH (08:17)
[2021-03-14] MEDS: INSULIN REGULAR 100 UNIT/ML SUBCUT SCH ×4 (08:23→21:50)
[2021-03-14] MEDS: FERROUS SULFATE 325 MG TABLET PO SCH (08:58)
[2021-03-14] MEDS: INSULIN GLARGINE 100 UNIT/ML SUBCUT SCH (21:49)
[2021-03-14] MEDS: DONEPEZIL 10 MG TABLET PO SCH (21:49)
[2021-03-15] MEDS: ceFAZolin 2,000 MG in PREMIX 1 EACH IV SCH ×3 (05:51→21:34)
[2021-03-15] MEDS: INSULIN REGULAR 100 UNIT/ML SUBCUT SCH ×4 (07:35→22:38)
[2021-03-15] MEDS: LACTULOSE 20 GM/30 ML UDCUP PO SCH ×2 (08:43→21:34)
[2021-03-15] MEDS: FUROSEMIDE 20 MG TABLET PO SCH (08:45)
[2021-03-15] MEDS: POTASSIUM CHLORIDE 20 MEQ TABLET PO SCH (08:45)
[2021-03-15] MEDS: FERROUS SULFATE 325 MG TABLET PO SCH (08:45)
[2021-03-15] MEDS: PROPRANOLOL 10 MG TABLET PO SCH ×2 (08:45→21:34)
[2021-03-15] MEDS: INSULIN GLARGINE 100 UNIT/ML SUBCUT SCH (21:25)
[2021-03-15] MEDS: DONEPEZIL 10 MG TABLET PO SCH (21:33)
[2021-03-16] MEDS: ceFAZolin 2,000 MG in PREMIX 1 EACH IV SCH ×3 (05:08→21:46)
[2021-03-16] MEDS: LACTULOSE 20 GM/30 ML UDCUP PO SCH ×2 (09:07→21:45)
[2021-03-16] MEDS: FERROUS SULFATE 325 MG TABLET PO SCH (09:07)
[2021-03-16] MEDS: POTASSIUM CHLORIDE 20 MEQ TABLET PO SCH (09:07)
[2021-03-16] MEDS: PROPRANOLOL 10 MG TABLET PO SCH ×2 (09:07→21:45)
[2021-03-16] MEDS: FUROSEMIDE 20 MG TABLET PO SCH (09:07)
[2021-03-16] MEDS: INSULIN REGULAR 100 UNIT/ML SUBCUT SCH ×4 (09:42→21:44)
[2021-03-16] MEDS: NON-FORMULARY MEDICATION (Alendronate 70 MG tablet) PO SCH (10:34)
[2021-03-16 17:21] LABS: Cholesterol Crystals None Seen /LPF
[2021-03-16 17:27] LABS: Lymphocytes,Synovial Fluid 1 %; Neutrophils,Synovial Fluid 98 %
[2021-03-16] MEDS: INSULIN GLARGINE 100 UNIT/ML SUBCUT SCH (21:45)
[2021-03-16] MEDS: DONEPEZIL 10 MG TABLET PO SCH (21:45)
[2021-03-17] MEDS: ceFAZolin 2,000 MG in PREMIX 1 EACH IV SCH ×2 (06:04→23:30)
[2021-03-17] MEDS ORDERED: HYDROmorphone 2 MG/1 ML VIAL IV ONE (07:48)
[2021-03-17] MEDS ORDERED: SODIUM CHLORIDE 0.9% 500 ML IV ONE (07:50)
[2021-03-17] MEDS ORDERED: ALBUMIN 5% 12.5 GM/250 ML VIAL IV ONE (07:51)
[2021-03-17] MEDS: INSULIN REGULAR 100 UNIT/ML SUBCUT SCH ×3 (08:11→21:11)
[2021-03-17 08:18] LABS: Basophils % 0.6 % (0.0-0.8); Eosinophils # 0.2 10*3/uL (0.0-0.87); Eosinophils % 3.2 % (0.00-10.9); Hematocrit 33.1 VOL% (35.7-47.0); Hemoglobin 10.7 GM/DL (12.0-16.0); Immature Granulocytes % 0.4 %; Immature Granulocytes Absolute 0.03 #; Lymphocytes # 0.9 10*3/uL (1.4-4.0); Lymphocytes % 12.6 % (21.3-54.2); Mean Corpuscular HGB Conc 32.3 GM/DL (32-36); Mean Corpuscular Volume 106.4 FL (87-102); Mean Platelet Volume 10.2 FL (9.6-12.0); Monocytes % 9.5 % (1.7-12.7); Neutrophils % 73.7 % (38.7-73.9); Platelet Count 145 T/CUMM (130-400); Red Blood Count 3.11 MC/CUMM (3.8-5.5); Red Cell Distribution Width 13.4 % (9.3-17.3); White Blood Count 6.8 T/CUMM (4-12)
[2021-03-17 08:28] LABS: PT Patient Result 11.6 SECS (10.5-12.0)
[2021-03-17] MEDS: FUROSEMIDE 20 MG TABLET PO SCH (08:33)
[2021-03-17] MEDS: PROPRANOLOL 10 MG TABLET PO SCH ×2 (08:33→21:09)
[2021-03-17 08:37] LABS: Calcium 8.1 MG/DL (8.5-10.1); Osmolality,Calculated 274.5 MOS/KG (273-304); Potassium 4.3 MMOL/L (3.5-5.1)
[2021-03-17] MEDS: SODIUM CHLORIDE 0.9% 1,000 ML IV SCH ×2 (12:12→19:08)
[2021-03-17] MEDS ORDERED: MIDAZOLAM 2 MG/2 ML VIAL ONE (12:54)
[2021-03-17] MEDS ORDERED: fentaNYL 100 MCG/2 ML VIAL ONE (12:54)
[2021-03-17] MEDS ORDERED: BACITRACIN OINT 0.9 GM PACK TOP ONE (13:12)
[2021-03-17] MEDS ORDERED: TRANEXAMIC ACID 1,000 MG/10 ML VIAL ONE (14:00)
[2021-03-17] MEDS ORDERED: MAGNESIUM HYDROXIDE SUSP 30 ML UDCUP PO PRN (14:55)
[2021-03-17] MEDS: ONDANSETRON 4 MG/2 ML VIAL IV PRN (15:10)
[2021-03-17] MEDS: LACTULOSE 20 GM/30 ML UDCUP PO SCH ×2 (15:12→21:11)
[2021-03-17] MEDS: FERROUS SULFATE 325 MG TABLET PO SCH (15:13)
[2021-03-17] MEDS: POTASSIUM CHLORIDE 20 MEQ TABLET PO SCH (15:13)
[2021-03-17] MEDS: HYDROmorphone 2 MG/1 ML VIAL IV PRN ×3 (15:30→21:08)
[2021-03-17] MEDS ORDERED: DEXTROSE 50% 25 GM/50 ML VIAL IV PRN (17:10)
[2021-03-17] MEDS ORDERED: GLUCAGON 1 MG VIAL IM PRN (17:10)
[2021-03-17] MEDS: DONEPEZIL 10 MG TABLET PO SCH (21:09)
[2021-03-17] MEDS: DOCUSATE SODIUM 100 MG CAPSULE PO SCH (21:09)
[2021-03-17] MEDS: INSULIN GLARGINE 100 UNIT/ML SUBCUT SCH (21:10)
[2021-03-17] MEDS: OXACILLIN 2,000 MG in SODIUM CHLORIDE 0.9% 100 ML IV SCH (21:11)
[2021-03-18] MEDS: OXACILLIN 2,000 MG in SODIUM CHLORIDE 0.9% 100 ML IV SCH ×4 (01:13→22:09)
[2021-03-18] MEDS: SODIUM CHLORIDE 0.9% 1,000 ML IV SCH ×3 (06:17→18:57)
[2021-03-18 07:01] LABS: Basophils % 0.5 % (0.0-0.8); Eosinophils # 0.2 10*3/uL (0.0-0.87); Eosinophils % 2.5 % (0.00-10.9); Hematocrit 28.1 VOL% (35.7-47.0); Hemoglobin 9.4 GM/DL (12.0-16.0); Immature Granulocytes % 0.6 %; Immature Granulocytes Absolute 0.05 #; Lymphocytes # 0.8 10*3/uL (1.4-4.0); Mean Corpuscular HGB Conc 33.5 GM/DL (32-36); Mean Corpuscular Volume 105.6 FL (87-102); Mean Platelet Volume 10.3 FL (9.6-12.0); Monocytes % 10.4 % (1.7-12.7); Platelet Count 130 T/CUMM (130-400); Red Blood Count 2.66 MC/CUMM (3.8-5.5); Red Cell Distribution Width 13.6 % (9.3-17.3); White Blood Count 8.1 T/CUMM (4-12)
[2021-03-18 07:21] LABS: Calcium 7.9 MG/DL (8.5-10.1); Osmolality,Calculated 277.4 MOS/KG (273-304); Potassium 4.4 MMOL/L (3.5-5.1)
[2021-03-18] MEDS ORDERED: HYDROmorphone 2 MG/1 ML VIAL IV ONE (08:25)
[2021-03-18] MEDS: INSULIN REGULAR 100 UNIT/ML SUBCUT SCH ×4 (09:24→22:18)
[2021-03-18] MEDS: FERROUS SULFATE 325 MG TABLET PO SCH (11:04)
[2021-03-18] MEDS: PROPRANOLOL 10 MG TABLET PO SCH ×2 (11:04→22:07)
[2021-03-18] MEDS: FUROSEMIDE 20 MG TABLET PO SCH (11:04)
[2021-03-18] MEDS: LACTULOSE 20 GM/30 ML UDCUP PO SCH ×2 (11:04→22:07)
[2021-03-18] MEDS: DOCUSATE SODIUM 100 MG CAPSULE PO SCH ×2 (11:04→22:07)
[2021-03-18] MEDS: POTASSIUM CHLORIDE 20 MEQ TABLET PO SCH (11:05)
[2021-03-18] MEDS ORDERED: ENOXAPARIN 40 MG/0.4 ML SYRINGE SUBCUT SCH (21:00)
[2021-03-18] MEDS: DONEPEZIL 10 MG TABLET PO SCH (22:07)
[2021-03-18] MEDS: INSULIN GLARGINE 100 UNIT/ML SUBCUT SCH (22:18)
[2021-03-19] MEDS: OXACILLIN 2,000 MG in SODIUM CHLORIDE 0.9% 100 ML IV SCH ×4 (02:26→21:43)
[2021-03-19] MEDS: HYDROmorphone 2 MG/1 ML VIAL IV PRN ×2 (02:27→17:22)
[2021-03-19 05:21] LABS: Basophils % 0.4 % (0.0-0.8); Eosinophils # 0.2 10*3/uL (0.0-0.87); Eosinophils % 2.2 % (0.00-10.9); Hematocrit 29.4 VOL% (35.7-47.0); Hemoglobin 9.3 GM/DL (12.0-16.0); Immature Granulocytes % 0.4 %; Immature Granulocytes Absolute 0.03 #; Lymphocytes # 0.9 10*3/uL (1.4-4.0); Lymphocytes % 12.2 % (21.3-54.2); Mean Corpuscular HGB Conc 31.6 GM/DL (32-36); Mean Corpuscular Volume 108.5 FL (87-102); Mean Platelet Volume 9.9 FL (9.6-12.0); Monocytes % 11.4 % (1.7-12.7); Neutrophils % 73.4 % (38.7-73.9); Platelet Count 134 T/CUMM (130-400); Red Blood Count 2.71 MC/CUMM (3.8-5.5); Red Cell Distribution Width 13.6 % (9.3-17.3); White Blood Count 7.1 T/CUMM (4-12)
[2021-03-19] MEDS: SODIUM CHLORIDE 0.9% 1,000 ML IV SCH ×3 (05:35→21:41)
[2021-03-19] MEDS: INSULIN REGULAR 100 UNIT/ML SUBCUT SCH ×4 (09:13→21:42)
[2021-03-19] MEDS ORDERED: BACITRACIN OINT 0.9 GM PACK TOP ONE (10:03)
[2021-03-19] MEDS ORDERED: MIDAZOLAM 2 MG/2 ML VIAL ONE (10:06)
[2021-03-19] MEDS ORDERED: fentaNYL 100 MCG/2 ML VIAL ONE (10:06)
[2021-03-19] MEDS ORDERED: LIDOCAINE 2% 5 ML VIAL ONE (10:06)
[2021-03-19] MEDS ORDERED: ROPIVACAINE 0.5% 30 ML VIAL ONE (10:09)
[2021-03-19] MEDS: FERROUS SULFATE 325 MG TABLET PO SCH (10:52)
[2021-03-19] MEDS: DOCUSATE SODIUM 100 MG CAPSULE PO SCH ×2 (10:52→21:42)
[2021-03-19] MEDS: LACTULOSE 20 GM/30 ML UDCUP PO SCH ×2 (10:52→21:41)
[2021-03-19] MEDS: POTASSIUM CHLORIDE 20 MEQ TABLET PO SCH (10:53)
[2021-03-19] MEDS: PROPRANOLOL 10 MG TABLET PO SCH ×2 (10:53→21:42)
[2021-03-19] MEDS: FUROSEMIDE 20 MG TABLET PO SCH (10:53)
[2021-03-19] MEDS ORDERED: propofoL 200 MG/20 ML VIAL IV ONE (11:00)
[2021-03-19] MEDS ORDERED: ONDANSETRON 4 MG/2 ML VIAL ONE (11:00)
[2021-03-19] MEDS ORDERED: TRANEXAMIC ACID 1,000 MG/10 ML VIAL ONE (11:21)
[2021-03-19] MEDS ORDERED: SEVOFLURANE 1 UNIT/15 MINUTE INH ONE (11:21)
[2021-03-19] MEDS ORDERED: NEOSTIGMINE 10 MG/10 ML VIAL ONE (11:41)
[2021-03-19] MEDS ORDERED: GLYCOPYRROLATE 0.4 MG/2 ML VIAL ONE (11:41)
[2021-03-19] MEDS: ONDANSETRON 4 MG/2 ML VIAL IV PRN (12:30)
[2021-03-19] MEDS: DONEPEZIL 10 MG TABLET PO SCH (21:41)
[2021-03-19] MEDS: INSULIN GLARGINE 100 UNIT/ML SUBCUT SCH (21:43)
[2021-03-20] MEDS: OXACILLIN 2,000 MG in SODIUM CHLORIDE 0.9% 100 ML IV SCH ×4 (03:36→20:36)
[2021-03-20] MEDS: HYDROmorphone 2 MG/1 ML VIAL IV PRN ×2 (03:36→06:21)
[2021-03-20 05:48] LABS: Basophils % 0.3 % (0.0-0.8); Eosinophils # 0.1 10*3/uL (0.0-0.87); Eosinophils % 1.5 % (0.00-10.9); Hematocrit 27.9 VOL% (35.7-47.0); Hemoglobin 8.6 GM/DL (12.0-16.0); Immature Granulocytes % 0.3 %; Immature Granulocytes Absolute 0.02 #; Lymphocytes # 0.7 10*3/uL (1.4-4.0); Lymphocytes % 12.7 % (21.3-54.2); Mean Corpuscular HGB Conc 30.8 GM/DL (32-36); Mean Platelet Volume 10.2 FL (9.6-12.0); Monocytes % 12.7 % (1.7-12.7); Neutrophils % 72.5 % (38.7-73.9); Platelet Count 129 T/CUMM (130-400); Red Blood Count 2.56 MC/CUMM (3.8-5.5); Red Cell Distribution Width 13.6 % (9.3-17.3); White Blood Count 5.8 T/CUMM (4-12)
[2021-03-20] MEDS: POTASSIUM CHLORIDE 20 MEQ TABLET PO SCH (08:18)
[2021-03-20] MEDS: PROPRANOLOL 10 MG TABLET PO SCH ×2 (08:18→20:34)
[2021-03-20] MEDS: FUROSEMIDE 20 MG TABLET PO SCH (08:18)
[2021-03-20] MEDS: DOCUSATE SODIUM 100 MG CAPSULE PO SCH ×2 (08:18→20:35)
[2021-03-20] MEDS: FERROUS SULFATE 325 MG TABLET PO SCH (08:18)
[2021-03-20] MEDS: LACTULOSE 20 GM/30 ML UDCUP PO SCH ×2 (08:18→20:35)
[2021-03-20] MEDS: INSULIN REGULAR 100 UNIT/ML SUBCUT SCH ×4 (08:19→20:34)
[2021-03-20] MEDS: SODIUM CHLORIDE 0.9% 1,000 ML IV SCH (10:24)
[2021-03-20] MEDS: NYSTATIN POWDER 15 GM BOTTLE TOP SCH ×2 (15:06→20:36)
[2021-03-20] MEDS: DONEPEZIL 10 MG TABLET PO SCH (20:34)
[2021-03-20] MEDS: diphenhydrAMINE CAP 25 MG CAPSULE PO PRN (20:34)
[2021-03-20] MEDS: INSULIN GLARGINE 100 UNIT/ML SUBCUT SCH (20:35)
[2021-03-21] MEDS: OXACILLIN 2,000 MG in SODIUM CHLORIDE 0.9% 100 ML IV SCH ×4 (02:25→20:58)
[2021-03-21] MEDS: diphenhydrAMINE CAP 25 MG CAPSULE PO PRN ×3 (02:26→20:05)
[2021-03-21] MEDS: INSULIN REGULAR 100 UNIT/ML SUBCUT SCH ×4 (07:58→20:58)
[2021-03-21] MEDS: LACTULOSE 20 GM/30 ML UDCUP PO SCH ×2 (08:01→20:57)
[2021-03-21] MEDS: FUROSEMIDE 20 MG TABLET PO SCH (08:01)
[2021-03-21] MEDS: POTASSIUM CHLORIDE 20 MEQ TABLET PO SCH (08:01)
[2021-03-21] MEDS: FERROUS SULFATE 325 MG TABLET PO SCH (08:01)
[2021-03-21] MEDS: PROPRANOLOL 10 MG TABLET PO SCH ×2 (08:01→20:56)
[2021-03-21] MEDS: DOCUSATE SODIUM 100 MG CAPSULE PO SCH ×2 (08:01→20:56)
[2021-03-21] MEDS: NYSTATIN POWDER 15 GM BOTTLE TOP SCH ×2 (08:02→20:58)
[2021-03-21] MEDS: FONDAPARINUX 2.5 MG/0.5 ML SYRINGE SUBCUT SCH (15:56)
[2021-03-21] MEDS: DONEPEZIL 10 MG TABLET PO SCH (20:56)
[2021-03-21] MEDS: INSULIN GLARGINE 100 UNIT/ML SUBCUT SCH (20:58)
[2021-03-22] MEDS: OXACILLIN 2,000 MG in SODIUM CHLORIDE 0.9% 100 ML IV SCH ×4 (03:10→22:05)
[2021-03-22 06:50] LABS: Basophils % 0.4 % (0.0-0.8); Eosinophils # 0.2 10*3/uL (0.0-0.87); Eosinophils % 3.4 % (0.00-10.9); Hematocrit 26.7 VOL% (35.7-47.0); Hemoglobin 8.3 GM/DL (12.0-16.0); Immature Granulocytes % 0.2 %; Immature Granulocytes Absolute 0.01 #; Lymphocytes % 19.6 % (21.3-54.2); Mean Corpuscular HGB Conc 31.1 GM/DL (32-36); Mean Corpuscular Volume 108.1 FL (87-102); Mean Platelet Volume 10.3 FL (9.6-12.0); Monocytes % 13.6 % (1.7-12.7); Neutrophils % 62.8 % (38.7-73.9); Platelet Count 128 T/CUMM (130-400); Red Blood Count 2.47 MC/CUMM (3.8-5.5); Red Cell Distribution Width 13.5 % (9.3-17.3); White Blood Count 5.3 T/CUMM (4-12)
[2021-03-22 06:56] LABS: Calcium 7.9 MG/DL (8.5-10.1); Osmolality,Calculated 280.7 MOS/KG (273-304); Potassium 4.2 MMOL/L (3.5-5.1)
[2021-03-22] MEDS: FUROSEMIDE 20 MG TABLET PO SCH (08:39)
[2021-03-22] MEDS: DOCUSATE SODIUM 100 MG CAPSULE PO SCH ×2 (08:40→21:46)
[2021-03-22] MEDS: FERROUS SULFATE 325 MG TABLET PO SCH (08:40)
[2021-03-22] MEDS: PROPRANOLOL 10 MG TABLET PO SCH ×2 (08:40→21:46)
[2021-03-22] MEDS: POTASSIUM CHLORIDE 20 MEQ TABLET PO SCH (08:40)
[2021-03-22] MEDS: diphenhydrAMINE CAP 25 MG CAPSULE PO PRN ×2 (08:41→14:39)
[2021-03-22] MEDS: NYSTATIN POWDER 15 GM BOTTLE TOP SCH ×2 (08:52→21:47)
[2021-03-22] MEDS: LACTULOSE 20 GM/30 ML UDCUP PO SCH ×2 (08:52→21:46)
[2021-03-22] MEDS: INSULIN REGULAR 100 UNIT/ML SUBCUT SCH ×4 (08:52→21:48)
[2021-03-22] MEDS: ONDANSETRON 4 MG/2 ML VIAL IV PRN (10:07)
[2021-03-22] MEDS ORDERED: FLUCONAZOLE 150 MG TABLET PO ONE (13:54)
[2021-03-22] MEDS: HYDROmorphone 2 MG/1 ML VIAL IV PRN ×2 (14:38→21:53)
[2021-03-22] MEDS: FONDAPARINUX 2.5 MG/0.5 ML SYRINGE SUBCUT SCH (16:30)
[2021-03-22] MEDS: DONEPEZIL 10 MG TABLET PO SCH (21:46)
[2021-03-22] MEDS: lisinopriL 20 MG TABLET PO SCH (21:46)
[2021-03-22] MEDS: INSULIN GLARGINE 100 UNIT/ML SUBCUT SCH (21:47)
[2021-03-23] MEDS: OXACILLIN 2,000 MG in SODIUM CHLORIDE 0.9% 100 ML IV SCH ×4 (04:04→20:44)
[2021-03-23] MEDS: HYDROmorphone 2 MG/1 ML VIAL IV PRN (09:08)
[2021-03-23] MEDS: PROPRANOLOL 10 MG TABLET PO SCH ×2 (09:14→20:42)
[2021-03-23] MEDS: FUROSEMIDE 20 MG TABLET PO SCH (09:14)
[2021-03-23] MEDS: POTASSIUM CHLORIDE 20 MEQ TABLET PO SCH (09:14)
[2021-03-23] MEDS: FERROUS SULFATE 325 MG TABLET PO SCH (09:15)
[2021-03-23] MEDS: INSULIN REGULAR 100 UNIT/ML SUBCUT SCH ×4 (09:15→22:04)
[2021-03-23] MEDS: LACTULOSE 20 GM/30 ML UDCUP PO SCH ×2 (09:15→20:42)
[2021-03-23] MEDS: DOCUSATE SODIUM 100 MG CAPSULE PO SCH ×2 (09:15→20:42)
[2021-03-23] MEDS: NON-FORMULARY MEDICATION (Alendronate 70 MG tablet) PO SCH (09:16)
[2021-03-23] MEDS: NYSTATIN POWDER 15 GM BOTTLE TOP SCH ×2 (09:17→20:45)
[2021-03-23] MEDS: diphenhydrAMINE CAP 25 MG CAPSULE PO PRN (09:20)
[2021-03-23] MEDS: ONDANSETRON 4 MG/2 ML VIAL IV PRN (09:20)
[2021-03-23] MEDS: DONEPEZIL 10 MG TABLET PO SCH (20:42)
[2021-03-23] MEDS: lisinopriL 20 MG TABLET PO SCH (20:42)
[2021-03-23] MEDS: FONDAPARINUX 2.5 MG/0.5 ML SYRINGE SUBCUT SCH (20:42)
[2021-03-23] MEDS: INSULIN GLARGINE 100 UNIT/ML SUBCUT SCH (22:03)
[2021-03-24] MEDS: OXACILLIN 2,000 MG in SODIUM CHLORIDE 0.9% 100 ML IV SCH ×2 (03:03→08:34)
[2021-03-24] MEDS: diphenhydrAMINE CAP 25 MG CAPSULE PO PRN ×2 (06:02→12:23)
[2021-03-24] MEDS: FUROSEMIDE 20 MG TABLET PO SCH (08:34)
[2021-03-24] MEDS: FERROUS SULFATE 325 MG TABLET PO SCH (08:34)
[2021-03-24] MEDS: PROPRANOLOL 10 MG TABLET PO SCH (08:35)
[2021-03-24] MEDS: POTASSIUM CHLORIDE 20 MEQ TABLET PO SCH (08:35)
[2021-03-24] MEDS: NYSTATIN POWDER 15 GM BOTTLE TOP SCH (08:35)
[2021-03-24] MEDS: LACTULOSE 20 GM/30 ML UDCUP PO SCH (08:35)
[2021-03-24] MEDS: DOCUSATE SODIUM 100 MG CAPSULE PO SCH (08:35)
[2021-03-24] MEDS: INSULIN REGULAR 100 UNIT/ML SUBCUT SCH ×2 (08:36→12:21)
[2021-03-24 12:36] VITALS: BP 150/84
== END 2021-03-24 12:30 | DRG 485 ==
LOC: N.ED 15:55 → N.EDINP 15:55 → N.5E 03-12 00:21 → SUATTDRO 03-12 14:13
PROVIDERS: ADMIT Internal Medicine; ATTEND Internal Medicine

== ENCOUNTER 2021-04-21 12:22 | Inpatient (IN) ==
[2021-04-21] MEDS ORDERED: ASPIRIN 325 MG TABLET PO STA (15:44)
[2021-04-21 16:27] LABS: Basophils # 0.1 10*3/uL (0.0-0.2); Eosinophils # 0.4 10*3/uL (0.0-0.87); Eosinophils % 7.6 % (0.00-10.9); Hematocrit 31.9 VOL% (35.7-47.0); Hemoglobin 9.9 GM/DL (12.0-16.0); Immature Granulocytes % 0.4 %; Immature Granulocytes Absolute 0.02 #; Lymphocytes % 18.8 % (21.3-54.2); Mean Corpuscular Volume 107.8 FL (87-102); Mean Platelet Volume 10.9 FL (9.6-12.0); Monocytes % 12.8 % (1.7-12.7); Neutrophils % 59.4 % (38.7-73.9); Platelet Count 89 T/CUMM (130-400); Red Blood Count 2.96 MC/CUMM (3.8-5.5); Red Cell Distribution Width 17.7 % (9.3-17.3); White Blood Count 5.2 T/CUMM (4-12)
[2021-04-21 16:38] LABS: Albumin 2.1 G/DL (3.4-5.0); Bilirubin,Total 0.5 MG/DL (0.2-1.0); Calcium 8.9 MG/DL (8.5-10.1); Osmolality,Calculated 288.4 MOS/KG (273-304); Total Protein 6.3 G/DL (6.4-8.2)
[2021-04-21] MEDS ORDERED: DEXTROSE 50% 25 GM/50 ML VIAL IV PRN (18:10)
[2021-04-21] MEDS ORDERED: GLUCAGON 1 MG VIAL IM PRN (18:10)
[2021-04-21 18:25] LABS: Bacteria,Urine Many /HPF (Few); Bilirubin,Urine Negative (Negative); Blood, Urine Negative (Negative); Glucose,Urine (UA) Negative (Negative); Ketones,Urine Negative (Negative); Nitrite,Urine Negative (Negative); Protein,Urine Negative; RBC,Urine 2 /HPF (0-4); Urine Appearance Slightly Hazy (Clear); Urine Color Yellow (Yellow); Urine Specific Gravity 1.013 (1.001-1.035); Urine Urobilinogen < 2.0 EU/DL (0.2-1.0)
[2021-04-21] MEDS ORDERED: OXACILLIN 2,000 MG VIAL IV SCH (19:00)
[2021-04-21] MEDS ORDERED: ACETAMINOPHEN 325 MG TABLET PO PRN (19:00)
[2021-04-21] MEDS: methylPREDNISolone SOD SUC 40 MG/1 ML VIAL IV SCH (20:55)
[2021-04-21] MEDS: FUROSEMIDE 40 MG/4 ML VIAL IV SCH (20:59)
[2021-04-21] MEDS: cefTRIAXone 1,000 MG in SODIUM CHLORIDE 0.9% 100 ML IV SCH (21:00)
[2021-04-21] MEDS ORDERED: diphenhydrAMINE CAP 25 MG CAPSULE PO ONE (22:52)
[2021-04-21] MEDS: MULTIVITAMIN (BEROCCA) TABLET PO SCH (23:04)
[2021-04-21] MEDS: SERTRALINE 50 MG TABLET PO SCH (23:05)
[2021-04-21] MEDS: DONEPEZIL 10 MG TABLET PO SCH (23:05)
[2021-04-21] MEDS: CALCIUM (CARBONATE) 600 MG TABLET PO SCH (23:06)
[2021-04-21] MEDS: LACTULOSE 20 GM/30 ML UDCUP PO SCH (23:06)
[2021-04-21] MEDS: INSULIN LISPRO 100 UNIT/ML SUBCUT SCH (23:21)
[2021-04-22] MEDS: OXACILLIN 2,000 MG in SODIUM CHLORIDE 0.9% 100 ML IV SCH ×3 (01:00→19:49)
[2021-04-22 05:13] LABS: Basophils % 0.9 % (0.0-0.8); Eosinophils % 0.5 % (0.00-10.9); Hematocrit 29.9 VOL% (35.7-47.0); Hemoglobin 9.6 GM/DL (12.0-16.0); Immature Granulocytes % 0.5 %; Immature Granulocytes Absolute 0.01 #; Lymphocytes # 0.3 10*3/uL (1.4-4.0); Lymphocytes % 14.4 % (21.3-54.2); Mean Corpuscular HGB Conc 32.1 GM/DL (32-36); Mean Corpuscular Volume 105.7 FL (87-102); Mean Platelet Volume 11.3 FL (9.6-12.0); Monocytes % 2.3 % (1.7-12.7); Neutrophils % 81.4 % (38.7-73.9); Red Blood Count 2.83 MC/CUMM (3.8-5.5); White Blood Count 2.2 T/CUMM (4-12)
[2021-04-22 05:15] LABS: Platelet Count 52 T/CUMM (130-400)
[2021-04-22 05:39] LABS: Eosinophils 1 % (0-10); Hypochromasia 1+; Lymphocytes 12 % (20-55); Platelet Estimate Decreased; Segmented Neutrophils 86 % (50-85); Total Cells Counted 100
[2021-04-22 05:42] LABS: Bilirubin,Total 0.8 MG/DL (0.2-1.0); Calcium 8.9 MG/DL (8.5-10.1); Potassium 3.6 MMOL/L (3.5-5.1); Total Protein 6.4 G/DL (6.4-8.2)
[2021-04-22] MEDS ORDERED: lisinopriL 10 MG TABLET PO SCH (09:00)
[2021-04-22] MEDS ORDERED: methylPREDNISolone SOD SUC 40 MG/1 ML VIAL IV SCH (09:00)
[2021-04-22] MEDS ORDERED: SPIRONOLACTONE 50 MG TABLET PO SCH (09:00)
[2021-04-22] MEDS: LACTULOSE 20 GM/30 ML UDCUP PO SCH ×2 (09:50→21:49)
[2021-04-22] MEDS: FERROUS SULFATE 325 MG TABLET PO SCH (09:50)
[2021-04-22] MEDS: methylPREDNISolone SOD SUC 40 MG/1 ML VIAL IV SCH (09:50)
[2021-04-22] MEDS: INSULIN LISPRO 100 UNIT/ML SUBCUT SCH ×4 (09:50→21:54)
[2021-04-22] MEDS: FUROSEMIDE 40 MG/4 ML VIAL IV SCH ×2 (09:53→17:53)
[2021-04-22 10:28] LABS: INR 1.2; PT Patient Result 13.6 SECS (10.5-12.0)
[2021-04-22] MEDS ORDERED: MAGNESIUM SULF RIDER 2 GM/50 ML PREMIX IV ONE (13:09)
[2021-04-22] MEDS: PROPRANOLOL 10 MG TABLET PO SCH ×2 (15:00→21:47)
[2021-04-22 17:23] LABS: Glucose,Peritoneal Fluid 236 MG/DL; LDH,Peritoneal Fluid 35 U/L; Total Protein,Peritoneal Fluid < 1.0 G/DL
[2021-04-22] MEDS: ONDANSETRON 4 MG/2 ML VIAL IV PRN (17:50)
[2021-04-22] MEDS: GABAPENTIN 100 MG CAPSULE PO SCH ×2 (17:50→21:48)
[2021-04-22] MEDS: ALBUMIN 5% 25 GM/500 ML VIAL IV SCH (17:56)
[2021-04-22 18:22] LABS: RBC,Peritoneal Fluid 37 T/CUMM
[2021-04-22] MEDS ORDERED: INSULIN GLARGINE 100 UNIT/ML SUBCUT SCH (21:00)
[2021-04-22] MEDS: cefTRIAXone 1,000 MG in SODIUM CHLORIDE 0.9% 100 ML IV SCH (21:46)
[2021-04-22] MEDS: CALCIUM (CARBONATE) 600 MG TABLET PO SCH (21:47)
[2021-04-22] MEDS: MULTIVITAMIN (BEROCCA) TABLET PO SCH (21:47)
[2021-04-22] MEDS: DONEPEZIL 10 MG TABLET PO SCH (21:48)
[2021-04-22] MEDS: SERTRALINE 50 MG TABLET PO SCH (21:48)
[2021-04-22] MEDS: INSULIN GLARGINE 100 UNIT/ML SUBCUT SCH (21:53)
[2021-04-23 04:57] LABS: Basophils % 0.4 % (0.0-0.8); Eosinophils # 0.1 10*3/uL (0.0-0.87); Eosinophils % 0.9 % (0.00-10.9); Hematocrit 26.6 VOL% (35.7-47.0); Hemoglobin 8.5 GM/DL (12.0-16.0); Immature Granulocytes % 0.4 %; Immature Granulocytes Absolute 0.02 #; Lymphocytes % 17.3 % (21.3-54.2); Mean Corpuscular Volume 106.8 FL (87-102); Mean Platelet Volume 10.6 FL (9.6-12.0); Monocytes % 10.1 % (1.7-12.7); Neutrophils % 70.9 % (38.7-73.9); Platelet Count 73 T/CUMM (130-400); Red Blood Count 2.49 MC/CUMM (3.8-5.5); Red Cell Distribution Width 16.9 % (9.3-17.3); White Blood Count 5.7 T/CUMM (4-12)
[2021-04-23 05:18] LABS: Hypochromasia 1+; Microcytosis 1+; Platelet Estimate Decreased
[2021-04-23 05:28] LABS: Calcium 8.5 MG/DL (8.5-10.1); Osmolality,Calculated 294.3 MOS/KG (273-304); Potassium 3.6 MMOL/L (3.5-5.1)
[2021-04-23] MEDS ORDERED: amLODIPine 5 MG TABLET PO SCH (09:00)
[2021-04-23] MEDS: FUROSEMIDE 40 MG/4 ML VIAL IV SCH ×2 (10:33→16:00)
[2021-04-23] MEDS: INSULIN LISPRO 100 UNIT/ML SUBCUT SCH ×4 (10:33→21:58)
[2021-04-23] MEDS: FERROUS SULFATE 325 MG TABLET PO SCH (10:34)
[2021-04-23] MEDS: PROPRANOLOL 10 MG TABLET PO SCH ×2 (10:34→21:44)
[2021-04-23] MEDS: LACTULOSE 20 GM/30 ML UDCUP PO SCH ×2 (10:35→21:49)
[2021-04-23] MEDS: SPIRONOLACTONE 50 MG TABLET PO SCH (10:35)
[2021-04-23] MEDS: lisinopriL 10 MG TABLET PO SCH (10:35)
[2021-04-23] MEDS: GABAPENTIN 100 MG CAPSULE PO SCH ×3 (10:35→21:44)
[2021-04-23] MEDS: predniSONE 20 MG TABLET PO SCH (10:35)
[2021-04-23] MEDS: ALBUMIN 5% 25 GM/500 ML VIAL IV SCH ×2 (11:08→18:15)
[2021-04-23 13:12] LABS: Ferritin 250.2 ng/ml (8-252)
[2021-04-23 13:17] LABS: Folate 18.65 NG/ML (5.38-24.0)
[2021-04-23] MEDS ORDERED: TUBERCULIN SKIN TEST 0.1 ML SYRINGE INTRADERM ONE (14:18)
[2021-04-23] MEDS: OXACILLIN 2,000 MG in SODIUM CHLORIDE 0.9% 100 ML IV SCH ×2 (15:59→21:38)
[2021-04-23] MEDS: cefTRIAXone 1,000 MG in SODIUM CHLORIDE 0.9% 100 ML IV SCH (20:29)
[2021-04-23] MEDS: MULTIVITAMIN (BEROCCA) TABLET PO SCH (21:43)
[2021-04-23] MEDS: SERTRALINE 50 MG TABLET PO SCH (21:44)
[2021-04-23] MEDS: DONEPEZIL 10 MG TABLET PO SCH (21:44)
[2021-04-23] MEDS: CALCIUM (CARBONATE) 600 MG TABLET PO SCH (21:49)
[2021-04-23] MEDS: INSULIN GLARGINE 100 UNIT/ML SUBCUT SCH (21:59)
[2021-04-23] MEDS ORDERED: ZALEPLON 5 MG CAPSULE PO ONE (22:50)
[2021-04-24] MEDS: OXACILLIN 2,000 MG in SODIUM CHLORIDE 0.9% 100 ML IV SCH ×5 (03:16→20:59)
[2021-04-24 04:30] LABS: Basophils % 0.3 % (0.0-0.8); Eosinophils % 0.8 % (0.00-10.9); Hematocrit 28.8 VOL% (35.7-47.0); Hemoglobin 8.9 GM/DL (12.0-16.0); Immature Granulocytes % 0.8 %; Immature Granulocytes Absolute 0.03 #; Lymphocytes # 0.8 10*3/uL (1.4-4.0); Lymphocytes % 20.3 % (21.3-54.2); Mean Corpuscular HGB Conc 30.9 GM/DL (32-36); Mean Corpuscular Volume 108.7 FL (87-102); Mean Platelet Volume 10.9 FL (9.6-12.0); Monocytes % 12.1 % (1.7-12.7); Neutrophils % 65.7 % (38.7-73.9); Platelet Count 65 T/CUMM (130-400); Red Blood Count 2.65 MC/CUMM (3.8-5.5); Red Cell Distribution Width 16.8 % (9.3-17.3); White Blood Count 3.9 T/CUMM (4-12)
[2021-04-24 04:50] LABS: Hypochromasia 1+; Microcytosis 1+; Platelet Estimate Decreased
[2021-04-24 04:57] LABS: Albumin 2.3 G/DL (3.4-5.0); Bilirubin,Total 0.6 MG/DL (0.2-1.0); Calcium 8.8 MG/DL (8.5-10.1); Osmolality,Calculated 294.3 MOS/KG (273-304); Potassium 3.7 MMOL/L (3.5-5.1); Total Protein 6.1 G/DL (6.4-8.2)
[2021-04-24] MEDS ORDERED: LEVOFLOXACIN 250 MG TABLET PO SCH (09:00)
[2021-04-24] MEDS: GABAPENTIN 100 MG CAPSULE PO SCH ×3 (09:23→20:57)
[2021-04-24] MEDS: lisinopriL 10 MG TABLET PO SCH (09:23)
[2021-04-24] MEDS: PROPRANOLOL 10 MG TABLET PO SCH ×2 (09:23→20:57)
[2021-04-24] MEDS: predniSONE 20 MG TABLET PO SCH (09:23)
[2021-04-24] MEDS: SPIRONOLACTONE 50 MG TABLET PO SCH (09:24)
[2021-04-24] MEDS: ALBUMIN 5% 25 GM/500 ML VIAL IV SCH (09:25)
[2021-04-24] MEDS: FERROUS SULFATE 325 MG TABLET PO SCH (09:25)
[2021-04-24] MEDS: FUROSEMIDE 40 MG/4 ML VIAL IV SCH ×2 (09:25→15:20)
[2021-04-24] MEDS: LACTULOSE 20 GM/30 ML UDCUP PO SCH ×2 (09:25→20:56)
[2021-04-24] MEDS: INSULIN LISPRO 100 UNIT/ML SUBCUT SCH ×4 (09:25→20:56)
[2021-04-24] MEDS: LIDOCAINE 5% PATCH TRANSDERM SCH ×2 (09:40→09:49)
[2021-04-24] MEDS ORDERED: LIDOCAINE 5% PATCH TRANSDERM SCH (13:10)
[2021-04-24] MEDS: DONEPEZIL 10 MG TABLET PO SCH (20:57)
[2021-04-24] MEDS: MULTIVITAMIN (BEROCCA) TABLET PO SCH (20:57)
[2021-04-24] MEDS: SERTRALINE 50 MG TABLET PO SCH (20:57)
[2021-04-24] MEDS: CALCIUM (CARBONATE) 600 MG TABLET PO SCH (20:57)
[2021-04-24] MEDS: INSULIN GLARGINE 100 UNIT/ML SUBCUT SCH (20:58)
[2021-04-24] MEDS: cefTRIAXone 1,000 MG in SODIUM CHLORIDE 0.9% 100 ML IV SCH (20:59)
[2021-04-25] MEDS: OXACILLIN 2,000 MG in SODIUM CHLORIDE 0.9% 100 ML IV SCH ×4 (02:42→21:03)
[2021-04-25 06:53] LABS: Basophils % 0.5 % (0.0-0.8); Eosinophils # 0.1 10*3/uL (0.0-0.87); Eosinophils % 1.6 % (0.00-10.9); Hematocrit 26.4 VOL% (35.7-47.0); Hemoglobin 8.5 GM/DL (12.0-16.0); Immature Granulocytes % 0.5 %; Immature Granulocytes Absolute 0.02 #; Lymphocytes # 0.9 10*3/uL (1.4-4.0); Lymphocytes % 21.1 % (21.3-54.2); Mean Corpuscular HGB Conc 32.2 GM/DL (32-36); Monocytes % 12.5 % (1.7-12.7); Neutrophils % 63.8 % (38.7-73.9); Red Blood Count 2.49 MC/CUMM (3.8-5.5); Red Cell Distribution Width 16.5 % (9.3-17.3); White Blood Count 4.3 T/CUMM (4-12)
[2021-04-25 06:55] LABS: Albumin 2.1 G/DL (3.4-5.0); Bilirubin,Total 0.4 MG/DL (0.2-1.0); Calcium 8.1 MG/DL (8.5-10.1); Osmolality,Calculated 294.4 MOS/KG (273-304); Potassium 3.6 MMOL/L (3.5-5.1); Total Protein 5.7 G/DL (6.4-8.2)
[2021-04-25 07:01] LABS: Platelet Count 59 T/CUMM (130-400)
[2021-04-25 07:32] LABS: Hypochromasia 1+
[2021-04-25 07:33] LABS: Microcytosis 1+; Platelet Estimate Decreased
[2021-04-25] MEDS: LACTULOSE 20 GM/30 ML UDCUP PO SCH ×3 (09:12→21:02)
[2021-04-25] MEDS: GABAPENTIN 100 MG CAPSULE PO SCH ×3 (09:14→21:03)
[2021-04-25] MEDS: FERROUS SULFATE 325 MG TABLET PO SCH (09:14)
[2021-04-25] MEDS: PROPRANOLOL 10 MG TABLET PO SCH ×2 (09:14→21:03)
[2021-04-25] MEDS: predniSONE 20 MG TABLET PO SCH (09:14)
[2021-04-25] MEDS: SPIRONOLACTONE 50 MG TABLET PO SCH (09:15)
[2021-04-25] MEDS: FUROSEMIDE 40 MG/4 ML VIAL IV SCH ×2 (09:15→16:12)
[2021-04-25] MEDS: lisinopriL 10 MG TABLET PO SCH (09:15)
[2021-04-25] MEDS: INSULIN LISPRO 100 UNIT/ML SUBCUT SCH ×4 (09:15→21:03)
[2021-04-25] MEDS: LIDOCAINE 5% PATCH TRANSDERM SCH (09:21)
[2021-04-25] MEDS ORDERED: ACETAMINOPHEN 500 MG TABLET PO PRN (13:27)
[2021-04-25] MEDS: cefTRIAXone 1,000 MG in SODIUM CHLORIDE 0.9% 100 ML IV SCH (21:01)
[2021-04-25] MEDS: VITAMIN E 400 UNIT CAPSULE PO SCH (21:02)
[2021-04-25] MEDS: MULTIVITAMIN (BEROCCA) TABLET PO SCH (21:02)
[2021-04-25] MEDS: SERTRALINE 50 MG TABLET PO SCH (21:02)
[2021-04-25] MEDS: DONEPEZIL 10 MG TABLET PO SCH (21:02)
[2021-04-25] MEDS: INSULIN GLARGINE 100 UNIT/ML SUBCUT SCH (21:03)
[2021-04-25] MEDS: CALCIUM (CARBONATE) 600 MG TABLET PO SCH (22:12)
[2021-04-26] MEDS: OXACILLIN 2,000 MG in SODIUM CHLORIDE 0.9% 100 ML IV SCH ×4 (03:10→22:00)
[2021-04-26] MEDS: GABAPENTIN 100 MG CAPSULE PO SCH ×3 (09:12→21:48)
[2021-04-26] MEDS: INSULIN LISPRO 100 UNIT/ML SUBCUT SCH ×4 (09:12→21:59)
[2021-04-26] MEDS: VITAMIN E 400 UNIT CAPSULE PO SCH ×2 (09:12→21:47)
[2021-04-26] MEDS: PROPRANOLOL 10 MG TABLET PO SCH ×2 (09:12→21:47)
[2021-04-26] MEDS: predniSONE 20 MG TABLET PO SCH (09:12)
[2021-04-26] MEDS: LACTULOSE 20 GM/30 ML UDCUP PO SCH ×3 (09:12→21:41)
[2021-04-26] MEDS: FERROUS SULFATE 325 MG TABLET PO SCH (09:13)
[2021-04-26] MEDS: SPIRONOLACTONE 50 MG TABLET PO SCH (09:13)
[2021-04-26] MEDS: FUROSEMIDE 40 MG/4 ML VIAL IV SCH ×2 (09:14→15:23)
[2021-04-26] MEDS: lisinopriL 10 MG TABLET PO SCH (09:14)
[2021-04-26] MEDS: LIDOCAINE 5% PATCH TRANSDERM SCH (09:17)
[2021-04-26] MEDS: cefTRIAXone 1,000 MG in SODIUM CHLORIDE 0.9% 100 ML IV SCH (21:40)
[2021-04-26] MEDS: INSULIN GLARGINE 100 UNIT/ML SUBCUT SCH (21:44)
[2021-04-26] MEDS: MULTIVITAMIN (BEROCCA) TABLET PO SCH (21:47)
[2021-04-26] MEDS: DONEPEZIL 10 MG TABLET PO SCH (21:47)
[2021-04-26] MEDS: SERTRALINE 50 MG TABLET PO SCH (21:47)
[2021-04-26] MEDS: CALCIUM (CARBONATE) 500 MG TABLET PO SCH (21:58)
[2021-04-27] MEDS: OXACILLIN 2,000 MG in SODIUM CHLORIDE 0.9% 100 ML IV SCH ×4 (02:37→22:16)
[2021-04-27 06:18] LABS: Basophils % 0.2 % (0.0-0.8); Eosinophils # 0.1 10*3/uL (0.0-0.87); Eosinophils % 1.3 % (0.00-10.9); Hematocrit 32.1 VOL% (35.7-47.0); Immature Granulocytes % 0.4 %; Immature Granulocytes Absolute 0.02 #; Lymphocytes # 1.2 10*3/uL (1.4-4.0); Lymphocytes % 21.5 % (21.3-54.2); Mean Corpuscular HGB Conc 30.5 GM/DL (32-36); Mean Corpuscular Volume 108.8 FL (87-102); Mean Platelet Volume 10.8 FL (9.6-12.0); Monocytes % 10.6 % (1.7-12.7); Red Blood Count 2.95 MC/CUMM (3.8-5.5); Red Cell Distribution Width 16.5 % (9.3-17.3); White Blood Count 5.5 T/CUMM (4-12)
[2021-04-27 06:19] LABS: Hemoglobin 9.8 GM/DL (12.0-16.0); Platelet Count 75 T/CUMM (130-400)
[2021-04-27 06:35] LABS: Albumin 2.2 G/DL (3.4-5.0); Bilirubin,Total 0.5 MG/DL (0.2-1.0); Calcium 8.2 MG/DL (8.5-10.1); Potassium 2.9 MMOL/L (3.5-5.1); Total Protein 6.5 G/DL (6.4-8.2)
[2021-04-27 06:39] LABS: Hypochromasia 1+; Microcytosis 1+; Platelet Estimate Decreased
[2021-04-27] MEDS ORDERED: POTASSIUM CHLORIDE 20 MEQ TABLET PO PRN (07:06)
[2021-04-27] MEDS: CALCIUM (CARBONATE) 600 MG TABLET PO SCH (07:08)
[2021-04-27] MEDS ORDERED: POTASSIUM CHLORIDE 20 MEQ TABLET PO ONE ×2 (08:34→10:10)
[2021-04-27] MEDS: FUROSEMIDE 40 MG/4 ML VIAL IV SCH ×2 (09:33→15:40)
[2021-04-27] MEDS ORDERED: MAGNESIUM SULF RIDER 2 GM/50 ML PREMIX IV ONE (10:10)
[2021-04-27] MEDS: INSULIN LISPRO 100 UNIT/ML SUBCUT SCH ×5 (10:18→22:16)
[2021-04-27] MEDS: lisinopriL 10 MG TABLET PO SCH (10:30)
[2021-04-27] MEDS: VITAMIN E 400 UNIT CAPSULE PO SCH ×2 (10:30→20:37)
[2021-04-27] MEDS: LIDOCAINE 5% PATCH TRANSDERM SCH (10:30)
[2021-04-27] MEDS: predniSONE 20 MG TABLET PO SCH (10:49)
[2021-04-27] MEDS: PROPRANOLOL 10 MG TABLET PO SCH ×2 (10:50→20:36)
[2021-04-27] MEDS: SPIRONOLACTONE 50 MG TABLET PO SCH (10:50)
[2021-04-27] MEDS: FERROUS SULFATE 325 MG TABLET PO SCH (10:51)
[2021-04-27] MEDS: LACTULOSE 20 GM/30 ML UDCUP PO SCH ×3 (10:51→20:36)
[2021-04-27] MEDS: GABAPENTIN 100 MG CAPSULE PO SCH ×3 (10:52→20:36)
[2021-04-27] MEDS: DONEPEZIL 10 MG TABLET PO SCH (20:36)
[2021-04-27] MEDS: CALCIUM (CARBONATE) 500 MG TABLET PO SCH (20:36)
[2021-04-27] MEDS: MULTIVITAMIN (BEROCCA) TABLET PO SCH (20:36)
[2021-04-27] MEDS: cefTRIAXone 1,000 MG in SODIUM CHLORIDE 0.9% 100 ML IV SCH (20:44)
[2021-04-27] MEDS: INSULIN GLARGINE 100 UNIT/ML SUBCUT SCH (22:16)
[2021-04-27] MEDS: SERTRALINE 50 MG TABLET PO SCH (22:54)
[2021-04-28] MEDS: OXACILLIN 2,000 MG in SODIUM CHLORIDE 0.9% 100 ML IV SCH ×4 (02:03→21:48)
[2021-04-28] MEDS ORDERED: INDOMETHACIN SUPP 50 MG SUPP RECTAL ONE (06:17)
[2021-04-28 06:50] LABS: Basophils % 0.2 % (0.0-0.8); Eosinophils # 0.1 10*3/uL (0.0-0.87); Eosinophils % 1.4 % (0.00-10.9); Hematocrit 28.7 VOL% (35.7-47.0); Hemoglobin 9.2 GM/DL (12.0-16.0); Immature Granulocytes % 0.2 %; Immature Granulocytes Absolute 0.01 #; Lymphocytes # 0.9 10*3/uL (1.4-4.0); Mean Corpuscular HGB Conc 32.1 GM/DL (32-36); Mean Corpuscular Volume 106.3 FL (87-102); Mean Platelet Volume 11.6 FL (9.6-12.0); Monocytes % 11.4 % (1.7-12.7); Neutrophils % 66.8 % (38.7-73.9); Red Cell Distribution Width 16.3 % (9.3-17.3); White Blood Count 4.4 T/CUMM (4-12)
[2021-04-28 06:51] LABS: Platelet Count 51 T/CUMM (130-400)
[2021-04-28] MEDS: INSULIN LISPRO 100 UNIT/ML SUBCUT SCH ×4 (07:11→20:58)
[2021-04-28 07:22] LABS: Calcium 8.5 MG/DL (8.5-10.1); Potassium 3.6 MMOL/L (3.5-5.1)
[2021-04-28] MEDS: PROPRANOLOL 10 MG TABLET PO SCH ×2 (08:55→20:58)
[2021-04-28] MEDS: GABAPENTIN 100 MG CAPSULE PO SCH ×3 (08:55→20:58)
[2021-04-28] MEDS: LACTULOSE 20 GM/30 ML UDCUP PO SCH ×3 (08:55→20:59)
[2021-04-28] MEDS: FUROSEMIDE 40 MG/4 ML VIAL IV SCH ×2 (09:04→16:33)
[2021-04-28] MEDS: LACTATED RINGERS 1,000 ML IV SCH (10:45)
[2021-04-28] MEDS ORDERED: propofoL 200 MG/20 ML VIAL IV ONE (11:25)
[2021-04-28] MEDS ORDERED: LIDOCAINE 2% 5 ML VIAL ONE (11:25)
[2021-04-28] MEDS: VITAMIN E 400 UNIT CAPSULE PO SCH ×2 (15:44→20:58)
[2021-04-28] MEDS: SPIRONOLACTONE 50 MG TABLET PO SCH (15:44)
[2021-04-28] MEDS: predniSONE 20 MG TABLET PO SCH (15:45)
[2021-04-28] MEDS: FERROUS SULFATE 325 MG TABLET PO SCH (15:45)
[2021-04-28] MEDS: LIDOCAINE 5% PATCH TRANSDERM SCH (18:00)
[2021-04-28] MEDS: lisinopriL 10 MG TABLET PO SCH (18:04)
[2021-04-28] MEDS: DONEPEZIL 10 MG TABLET PO SCH (20:58)
[2021-04-28] MEDS: CALCIUM (CARBONATE) 500 MG TABLET PO SCH (20:58)
[2021-04-28] MEDS: SERTRALINE 50 MG TABLET PO SCH (20:58)
[2021-04-28] MEDS: MULTIVITAMIN (BEROCCA) TABLET PO SCH (20:58)
[2021-04-28] MEDS: INSULIN GLARGINE 100 UNIT/ML SUBCUT SCH (20:59)
[2021-04-28] MEDS: cefTRIAXone 1,000 MG in SODIUM CHLORIDE 0.9% 100 ML IV SCH (21:08)
[2021-04-29] MEDS: OXACILLIN 2,000 MG in SODIUM CHLORIDE 0.9% 100 ML IV SCH ×4 (02:57→22:53)
[2021-04-29] MEDS: LACTULOSE 20 GM/30 ML UDCUP PO SCH ×3 (08:27→22:56)
[2021-04-29] MEDS: INSULIN LISPRO 100 UNIT/ML SUBCUT SCH ×4 (08:28→22:57)
[2021-04-29] MEDS: FUROSEMIDE 40 MG/4 ML VIAL IV SCH ×2 (08:28→15:04)
[2021-04-29] MEDS: LIDOCAINE 5% PATCH TRANSDERM SCH (08:28)
[2021-04-29] MEDS: PROPRANOLOL 10 MG TABLET PO SCH ×2 (08:29→22:59)
[2021-04-29] MEDS: VITAMIN E 400 UNIT CAPSULE PO SCH ×2 (08:29→22:59)
[2021-04-29] MEDS: SPIRONOLACTONE 50 MG TABLET PO SCH (08:29)
[2021-04-29] MEDS: FERROUS SULFATE 325 MG TABLET PO SCH (08:29)
[2021-04-29] MEDS: predniSONE 20 MG TABLET PO SCH (08:29)
[2021-04-29] MEDS: GABAPENTIN 100 MG CAPSULE PO SCH ×3 (08:29→22:58)
[2021-04-29] MEDS: lisinopriL 10 MG TABLET PO SCH (08:29)
[2021-04-29] MEDS: LACTATED RINGERS 1,000 ML IV SCH (10:01)
[2021-04-29] MEDS: ONDANSETRON 4 MG/2 ML VIAL IV PRN (12:31)
[2021-04-29] MEDS: MULTIVITAMIN (BEROCCA) TABLET PO SCH (22:58)
[2021-04-29] MEDS: DONEPEZIL 10 MG TABLET PO SCH (22:59)
[2021-04-29] MEDS: CALCIUM (CARBONATE) 500 MG TABLET PO SCH (22:59)
[2021-04-29] MEDS: SERTRALINE 50 MG TABLET PO SCH (22:59)
[2021-04-29] MEDS: INSULIN GLARGINE 100 UNIT/ML SUBCUT SCH (23:00)
[2021-04-30] MEDS: OXACILLIN 2,000 MG in SODIUM CHLORIDE 0.9% 100 ML IV SCH (03:28)
[2021-04-30] MEDS: LIDOCAINE 5% PATCH TRANSDERM SCH (08:00)
[2021-04-30] MEDS: INSULIN LISPRO 100 UNIT/ML SUBCUT SCH ×2 (08:01→11:27)
[2021-04-30] MEDS: FUROSEMIDE 40 MG/4 ML VIAL IV SCH (08:01)
[2021-04-30] MEDS: SPIRONOLACTONE 50 MG TABLET PO SCH (08:01)
[2021-04-30] MEDS: PROPRANOLOL 10 MG TABLET PO SCH (08:02)
[2021-04-30] MEDS: GABAPENTIN 100 MG CAPSULE PO SCH (08:02)
[2021-04-30] MEDS: VITAMIN E 400 UNIT CAPSULE PO SCH (08:02)
[2021-04-30] MEDS: lisinopriL 10 MG TABLET PO SCH (08:02)
[2021-04-30] MEDS: FERROUS SULFATE 325 MG TABLET PO SCH (08:02)
[2021-04-30] MEDS: predniSONE 20 MG TABLET PO SCH (08:02)
[2021-04-30] MEDS ORDERED: cephALEXin 500 MG CAPSULE PO SCH (09:00)
[2021-04-30] MEDS ORDERED: LACTULOSE 20 GM/30 ML UDCUP PO SCH (09:00)
[2021-04-30 11:09] VITALS: BP 169/48
== END 2021-04-30 11:28 | disposition swing bed (61) | DRG 432 ==
LOC: SUATTDRO → N.ED 12:22 → N.EDINP 12:22 → SUATTDRO 18:10 → N.EDINP 21:50 → N.TELEN 22:49 → SUATTDRO 04-23 09:34 → N.4E 04-27 19:06
PROVIDERS: ADMIT Internal Medicine; ATTEND Internal Medicine

== ENCOUNTER 2021-05-03 14:44 | Observation (INO) ==
[2021-05-03 16:10] LABS: Bacteria,Urine Occasional /HPF (Few); Bilirubin,Urine Negative (Negative); Blood, Urine Negative (Negative); Glucose,Urine (UA) 50 mg/dL (Negative); Hyaline Casts,Urine 1 /LPF (0-3); Ketones,Urine Negative (Negative); Mucus,Urine Occasional /LPF (Occasional); Nitrite,Urine Negative (Negative); Protein,Urine Negative; RBC,Urine 2 /HPF (0-4); Squamous Epithelial Cell,Urine Occasional /HPF (0-10); Urine Appearance CLEAR (Clear); Urine Color Yellow (Yellow); Urine Specific Gravity 1.006 (1.001-1.035); Urine Urobilinogen < 2.0 EU/DL (0.2-1.0)
[2021-05-03 16:11] LABS: Basophils % 0.4 % (0.0-0.8); Eosinophils # 0.2 10*3/uL (0.0-0.87); Eosinophils % 2.4 % (0.00-10.9); Hematocrit 30.7 VOL% (35.7-47.0); Hemoglobin 9.7 GM/DL (12.0-16.0); Immature Granulocytes % 0.5 %; Immature Granulocytes Absolute 0.04 #; Lymphocytes # 0.9 10*3/uL (1.4-4.0); Lymphocytes % 11.5 % (21.3-54.2); Mean Corpuscular HGB Conc 31.6 GM/DL (32-36); Mean Corpuscular Volume 107.3 FL (87-102); Neutrophils % 77.2 % (38.7-73.9); Platelet Count 69 T/CUMM (130-400); Red Blood Count 2.86 MC/CUMM (3.8-5.5); Red Cell Distribution Width 15.8 % (9.3-17.3); White Blood Count 7.5 T/CUMM (4-12)
[2021-05-03 16:32] LABS: Albumin 2.2 G/DL (3.4-5.0); Bilirubin,Total 0.6 MG/DL (0.2-1.0); Calcium 8.7 MG/DL (8.5-10.1); Lactic Acid 1.6 MMOL/L (0.4-2.0); Osmolality,Calculated 286.7 MOS/KG (273-304); Potassium 4.2 MMOL/L (3.5-5.1); Total Protein 6.2 G/DL (6.4-8.2)
[2021-05-03 16:56] LABS: INR 1.1
[2021-05-03] MEDS ORDERED: DEXTROSE 50% 25 GM/50 ML VIAL IV PRN ×2 (18:17→18:24)
[2021-05-03] MEDS ORDERED: GLUCAGON 1 MG VIAL IM PRN ×2 (18:17→18:24)
[2021-05-03] MEDS ORDERED: CALCIUM (CARBONATE) 500 MG TABLET PO SCH (21:00)
[2021-05-03] MEDS ORDERED: DONEPEZIL 10 MG TABLET PO SCH (21:00)
[2021-05-03] MEDS ORDERED: SERTRALINE 50 MG TABLET PO SCH (21:00)
[2021-05-03] MEDS ORDERED: OXYBUTYNIN XL 15 MG TABLET PO SCH (21:00)
[2021-05-03] MEDS ORDERED: INSULIN GLARGINE 100 UNIT/ML SUBCUT SCH (21:00)
[2021-05-03] MEDS: INSULIN LISPRO 100 UNIT/ML SUBCUT SCH (22:08)
[2021-05-03] MEDS: LACTULOSE 20 GM/30 ML UDCUP PO SCH (22:08)
[2021-05-03] MEDS: PROPRANOLOL 10 MG TABLET PO SCH (22:08)
[2021-05-03] MEDS: GABAPENTIN 100 MG CAPSULE PO SCH (22:09)
[2021-05-03] MEDS: DOXYCYCLINE HYCLATE INJ 100 MG in SODIUM CHLORIDE 0.9% 100 ML IV SCH (22:20)
[2021-05-04] MEDS: cephALEXin 500 MG CAPSULE PO SCH ×2 (01:52→10:21)
[2021-05-04 05:29] LABS: INR 1.1; PT Patient Result 12.4 SECS (10.5-12.0)
[2021-05-04 05:30] LABS: Basophils % 0.2 % (0.0-0.8); Eosinophils # 0.2 10*3/uL (0.0-0.87); Eosinophils % 2.7 % (0.00-10.9); Hematocrit 27.5 VOL% (35.7-47.0); Hemoglobin 8.5 GM/DL (12.0-16.0); Immature Granulocytes % 0.3 %; Immature Granulocytes Absolute 0.02 #; Lymphocytes # 1.2 10*3/uL (1.4-4.0); Lymphocytes % 21.1 % (21.3-54.2); Mean Corpuscular HGB Conc 30.9 GM/DL (32-36); Mean Corpuscular Volume 108.3 FL (87-102); Mean Platelet Volume 11.7 FL (9.6-12.0); Monocytes % 12.5 % (1.7-12.7); Neutrophils % 63.2 % (38.7-73.9); Platelet Count 55 T/CUMM (130-400); Red Blood Count 2.54 MC/CUMM (3.8-5.5); Red Cell Distribution Width 15.9 % (9.3-17.3); White Blood Count 5.8 T/CUMM (4-12)
[2021-05-04 05:50] LABS: Osmolality,Calculated 284.5 MOS/KG (273-304); Potassium 3.9 MMOL/L (3.5-5.1)
[2021-05-04 05:56] LABS: Hypochromasia 1+; Microcytosis 1+; Platelet Estimate Decreased
[2021-05-04] MEDS: INSULIN LISPRO 100 UNIT/ML SUBCUT SCH ×3 (07:32→17:23)
[2021-05-04] MEDS ORDERED: FERROUS SULFATE 325 MG TABLET PO SCH (09:00)
[2021-05-04] MEDS ORDERED: PANTOPRAZOLE 40 MG TABLET PO SCH (09:00)
[2021-05-04] MEDS ORDERED: SPIRONOLACTONE 50 MG TABLET PO SCH (09:00)
[2021-05-04] MEDS ORDERED: FUROSEMIDE 40 MG TABLET PO SCH (09:00)
[2021-05-04] MEDS ORDERED: lisinopriL 10 MG TABLET PO SCH (09:00)
[2021-05-04 09:52] LABS: Neutrophils,Peritoneal Fluid 23 %; RBC,Peritoneal Fluid 56 T/CUMM
[2021-05-04] MEDS: GABAPENTIN 100 MG CAPSULE PO SCH ×2 (10:21→16:40)
[2021-05-04] MEDS: DOXYCYCLINE HYCLATE INJ 100 MG in SODIUM CHLORIDE 0.9% 100 ML IV SCH ×2 (10:21→10:57)
[2021-05-04] MEDS: PROPRANOLOL 10 MG TABLET PO SCH (10:22)
[2021-05-04] MEDS: LACTULOSE 20 GM/30 ML UDCUP PO SCH (10:22)
[2021-05-04 12:42] VITALS: BP 151/44
[2021-05-04] MEDS ORDERED: ALBUMIN 25% 50 GM/200 ML VIAL IV ONE (12:53)
== END 2021-05-04 18:02 | disposition home or self-care (01) ==
LOC: EDUNIT# → EDBD → N.EDINP 14:44 → N.ED 14:44 → N.5E 19:29
PROVIDERS: ADMIT Internal Medicine; ATTEND Internal Medicine

== ENCOUNTER 2022-07-06 11:06 | Observation (INO) ==
[2022-07-06] MEDS ORDERED: LACTULOSE 20 GM/30 ML UDCUP PO STA (11:26)
[2022-07-06 11:54] LABS: Basophils % 0.7 % (0.0-0.8); Eosinophils # 0.1 10*3/uL (0.0-0.87); Hematocrit 31.2 VOL% (35.7-47.0); Immature Granulocytes % 0.2 %; Immature Granulocytes Absolute 0.01 #; Lymphocytes # 0.8 10*3/uL (1.4-4.0); Lymphocytes % 19.1 % (21.3-54.2); Mean Corpuscular HGB Conc 32.1 GM/DL (32-36); Mean Platelet Volume 10.6 FL (9.6-12.0); Monocytes # 0.5 10*3/uL (0.11-0.8); Monocytes % 11.2 % (1.7-12.7); Neutrophils % 65.8 % (38.7-73.9); Platelet Count 73 T/CUMM (130-400); Red Blood Count 2.89 MC/CUMM (3.8-5.5); Red Cell Distribution Width 14.6 % (9.3-17.3); White Blood Count 4.4 T/CUMM (4-12)
[2022-07-06 12:03] LABS: Albumin 2.8 G/DL (3.4-5.0); Bilirubin,Total 0.6 MG/DL (0.20-1.00); Osmolality,Calculated 293.4 MOS/KG (273-304); Potassium 4.6 MMOL/L (3.5-5.1)
[2022-07-06 12:22] LABS: Macrocytosis 1+; Platelet Estimate Decreased
[2022-07-06 12:30] LABS: Glucose,Urine (UA) 500 mg/dL (Negative); Ketones,Urine Negative (Negative); Protein,Urine Negative (Negative); Urine Appearance Cloudy (Clear); Urine Color Yellow (Yellow)
[2022-07-06 12:31] LABS: Bilirubin,Urine Negative (Negative); Blood, Urine Small mg/dL (Negative); Nitrite,Urine Negative (Negative); Urine Urobilinogen 0.2 eU/dL (<2.0)
[2022-07-06 12:33] LABS: Bacteria,Urine Occasional /HPF (Few); RBC,Urine Occasional /HPF (0-4); Squamous Epithelial Cell,Urine Few /HPF (0-10)
[2022-07-06] MEDS ORDERED: cefTRIAXone 1,000 MG in SODIUM CHLORIDE 0.9% 100 ML IV STA (13:19)
[2022-07-06] MEDS ORDERED: GLUCAGON 1 MG VIAL IM PRN (13:47)
[2022-07-06] MEDS ORDERED: DEXTROSE 10% 250 ML BAG IV PRN (13:47)
[2022-07-06] MEDS ORDERED: ONDANSETRON 4 MG/2 ML VIAL IV PRN (13:47)
[2022-07-06] MEDS ORDERED: ACETAMINOPHEN 325 MG TABLET PO PRN (13:47)
[2022-07-06] MEDS: LACTULOSE 20 GM/30 ML UDCUP PO SCH ×3 (18:04→21:45)
[2022-07-06] MEDS: GABAPENTIN 100 MG CAPSULE PO SCH ×2 (18:05→21:44)
[2022-07-06] MEDS: SODIUM CHLORIDE 0.9% 1,000 ML IV SCH (18:05)
[2022-07-06] MEDS: INSULIN LISPRO 100 UNIT/ML SUBCUT SCH ×2 (18:47→21:53)
[2022-07-06] MEDS: PROPRANOLOL 10 MG TABLET PO SCH (21:44)
[2022-07-06] MEDS: RIFAXIMIN 550 MG TABLET PO SCH (21:44)
[2022-07-06] MEDS: FERROUS SULFATE 325 MG TABLET PO SCH (21:44)
[2022-07-06] MEDS: SERTRALINE 50 MG TABLET PO SCH (21:45)
[2022-07-06] MEDS: INSULIN GLARGINE 100 UNIT/ML SUBCUT SCH (21:53)
[2022-07-07] MEDS: LACTULOSE 20 GM/30 ML UDCUP PO SCH ×5 (02:40→20:24)
[2022-07-07 07:16] LABS: Basophils % 0.7 % (0.0-0.8); Eosinophils # 0.2 10*3/uL (0.0-0.87); Eosinophils % 4.2 % (0.00-10.9); Hematocrit 29.8 VOL% (35.7-47.0); Hemoglobin 9.8 GM/DL (12.0-16.0); Immature Granulocytes % 0.5 %; Immature Granulocytes Absolute 0.02 #; Lymphocytes # 1.3 10*3/uL (1.4-4.0); Lymphocytes % 30.6 % (21.3-54.2); Mean Corpuscular HGB Conc 32.9 GM/DL (32-36); Mean Corpuscular Volume 105.3 FL (87-102); Mean Platelet Volume 10.8 FL (9.6-12.0); Monocytes # 0.5 10*3/uL (0.11-0.8); Monocytes % 11.8 % (1.7-12.7); Neutrophils % 52.2 % (38.7-73.9); Platelet Count 78 T/CUMM (130-400); Red Blood Count 2.83 MC/CUMM (3.8-5.5); White Blood Count 4.3 T/CUMM (4-12)
[2022-07-07 07:33] LABS: Hypochromia Slight
[2022-07-07 07:34] LABS: Macrocytosis Slight; Platelet Estimate Decreased
[2022-07-07 07:38] LABS: Albumin 2.6 G/DL (3.4-5.0); Bilirubin,Total 0.7 MG/DL (0.20-1.00); Calcium 8.5 MG/DL (8.5-10.1); Osmolality,Calculated 293.7 MOS/KG (273-304); Total Protein 5.7 G/DL (6.4-8.2)
[2022-07-07] MEDS: SODIUM CHLORIDE 0.9% 1,000 ML IV SCH (08:43)
[2022-07-07] MEDS: INSULIN LISPRO 100 UNIT/ML SUBCUT SCH ×4 (08:57→20:47)
[2022-07-07] MEDS: MEMANTINE 10 MG TABLET PO SCH ×2 (09:08→20:29)
[2022-07-07] MEDS: PANTOPRAZOLE 40 MG TABLET PO SCH (09:08)
[2022-07-07] MEDS: cefTRIAXone 1,000 MG in SODIUM CHLORIDE 0.9% 100 ML IV SCH (09:08)
[2022-07-07] MEDS: PROPRANOLOL 10 MG TABLET PO SCH ×2 (09:08→20:29)
[2022-07-07] MEDS: RIFAXIMIN 550 MG TABLET PO SCH ×2 (09:09→20:29)
[2022-07-07] MEDS: FUROSEMIDE 40 MG TABLET PO SCH (09:09)
[2022-07-07] MEDS: FERROUS SULFATE 325 MG TABLET PO SCH ×2 (09:09→20:29)
[2022-07-07] MEDS: GABAPENTIN 100 MG CAPSULE PO SCH ×3 (09:09→20:29)
[2022-07-07] MEDS: MULTIVITAMIN (CENTRUM) TABLET PO SCH (09:09)
[2022-07-07] MEDS: SPIRONOLACTONE 25 MG TABLET PO SCH (09:10)
[2022-07-07] MEDS: SERTRALINE 50 MG TABLET PO SCH (20:35)
[2022-07-07] MEDS: INSULIN GLARGINE 100 UNIT/ML SUBCUT SCH (20:48)
[2022-07-08 05:56] LABS: Basophils % 0.8 % (0.0-0.8); Eosinophils # 0.2 10*3/uL (0.0-0.87); Eosinophils % 4.3 % (0.00-10.9); Hematocrit 29.3 VOL% (35.7-47.0); Hemoglobin 9.7 GM/DL (12.0-16.0); Immature Granulocytes % 0.2 %; Immature Granulocytes Absolute 0.01 #; Lymphocytes # 1.3 10*3/uL (1.4-4.0); Lymphocytes % 26.1 % (21.3-54.2); Mean Corpuscular HGB Conc 33.1 GM/DL (32-36); Mean Corpuscular Volume 105.8 FL (87-102); Mean Platelet Volume 10.3 FL (9.6-12.0); Monocytes # 0.6 10*3/uL (0.11-0.8); Monocytes % 11.9 % (1.7-12.7); Neutrophils % 56.7 % (38.7-73.9); Platelet Count 79 T/CUMM (130-400); Red Blood Count 2.77 MC/CUMM (3.8-5.5); Red Cell Distribution Width 14.4 % (9.3-17.3); White Blood Count 5.1 T/CUMM (4-12)
[2022-07-08 06:12] LABS: Calcium 8.5 MG/DL (8.5-10.1); Osmolality,Calculated 284.1 MOS/KG (273-304)
[2022-07-08 06:26] LABS: Platelet Estimate Decreased
[2022-07-08 08:25] VITALS: BP 164/55
[2022-07-08 08:31] LABS: % Iron Saturation 40.1 % (18-50); Ferritin 236.1 ng/mL (8-252)
[2022-07-08 08:38] LABS: Folate 21.77 NG/ML (5.38-24.0)
[2022-07-08] MEDS: INSULIN LISPRO 100 UNIT/ML SUBCUT SCH ×2 (08:59→12:15)
[2022-07-08] MEDS: LACTULOSE 20 GM/30 ML UDCUP PO SCH (09:49)
[2022-07-08] MEDS: FERROUS SULFATE 325 MG TABLET PO SCH (09:50)
[2022-07-08] MEDS: FUROSEMIDE 40 MG TABLET PO SCH (09:50)
[2022-07-08] MEDS: MEMANTINE 10 MG TABLET PO SCH (09:50)
[2022-07-08] MEDS: MULTIVITAMIN (CENTRUM) TABLET PO SCH (09:50)
[2022-07-08] MEDS: PANTOPRAZOLE 40 MG TABLET PO SCH (09:50)
[2022-07-08] MEDS: PROPRANOLOL 10 MG TABLET PO SCH (09:50)
[2022-07-08] MEDS: SPIRONOLACTONE 25 MG TABLET PO SCH (09:51)
[2022-07-08] MEDS: RIFAXIMIN 550 MG TABLET PO SCH (09:51)
[2022-07-08] MEDS: GABAPENTIN 100 MG CAPSULE PO SCH (09:51)
[2022-07-08] MEDS: cefTRIAXone 1,000 MG in SODIUM CHLORIDE 0.9% 100 ML IV SCH (10:01)
== END 2022-07-08 11:37 | disposition home health service (06) ==
LOC: N.ED 11:06 → N.EDINP 11:06 → N.5E 16:26
PROVIDERS: ADMIT Internal Medicine; ATTEND Internal Medicine